=== PATIENT | female | born 1970 | race Caucasian/White ===

== ENCOUNTER 2018-11-13 17:09 | Emergency (ER) | payer OTHER, SELFPAY ==
[2018-11-13 17:10] VITALS: BP 144/91; PULSE 95; RESP 22; TEMP 36.7; O2SAT 97; BMI 37.3
--- NOTE | 2018-11-13 17:20 | CT_ITS ---
STUDY: CT ABDOMEN AND PELVIS WITH CONTRAST REASON FOR EXAM: Female, 48 years old. Right lower quadrant pain. RADIATION DOSAGE (If Supplied By Facility): CTDIvol = ( 16.64 ) mGy, DLP = ( 1190.17 ) mGycm TECHNIQUE: Transaxial images were obtained from the dome of the diaphragm to the symphysis pubis without oral contrast. 100 ml of Isovue 300 contrast was administered. Sagittal and coronal images were reconstructed. Individualized dose optimization techniques were used for this CT. COMPARISON: None. FINDINGS: Lung bases are clear. Visualized heart is normal. There is diffuse fatty infiltration of the liver. There is no focal hepatic lesion. The gallbladder is contracted. The spleen and pancreas are unremarkable. The adrenal glands are normal. The kidneys are unremarkable. No stones or hydronephrosis. The aorta is normal in caliber. There is no free fluid, free air, or organized collection. No bowel obstruction or inflammatory change. Normal appendix. Urinary bladder is unremarkable. Uterus and adnexae are unremarkable. There is prominent soft tissue density in the vagina or lower uterine segment with question of mass. Normal abdominal wall. Normal osseous structures. CT/Abdomen/Pelvis W IV Cont ONLY IMPRESSION: 1. No acute process or evidence of appendicitis. 2. Enlarged vagina with question of mass. Correlation with pelvic exam is advised. 3. Hepatic steatosis. Electronically Signed: Alba Hawthorne MD at 19:24 EST Tel , Service support ,
--- NOTE | 2018-11-13 17:25 | ED.DCSUM_ITS ---
- ER Visit Summary Date of Service: 11/13/18 Chief Complaint: Right lower quadrant pain History of Present Illness: The patient is a 48 F presents to the emergency department with right lower quadrant pain. The patient's been having symptoms intermittently for the past 2 weeks. Over the past few days, they have worsened. She describes an intermittent, sharp, stabbing pain in her right lower quadrant. She states when it comes on, she does get mildly nauseated and lightheaded. She has had some night sweats. She actually went to her OB. She had an ultrasound which showed a fibroid, but her ovaries were normal. She has had prior , but no other abdominal surgery. She denies any dysuria. She denies any flank pain. She denies any change in bowel habits. Physical Examination: Vital signs reviewed General: Well-nourished, well-developed Head: Normocephalic, atraumatic Eyes: Pupils equal and reactive, extraocular muscles intact Neck, supple, no lymphadenopathy Heart: Regular rate and rhythm Respiratory: No distress, clear bilaterally Abdomen: Soft, tender in the right lower quadrant without rebound or guarding, nondistended, no peritoneal signs Back: Nontender Extremities: Nontender, no edema, no cords Skin: Normal color no rash Neuro: Alert and oriented, no focal or lateralizing deficits Test Results: [] Emergency Department Course and Treatment: The patient presents with intermittent right lower quadrant pain. It is sharp and stabbing and comes in waves. She just came from her [employer] and had transvaginal ultrasound which demonstrated a fibroid at the anterior inferior part of the uterus. Ovaries were normal. The patient had IV established. She declined analgesics. Labs were obtained and were unremarkable. The patient underwent CT the abdomen pelvis. This does demonstrate the uterine abnormality, but there was no other intra-abdominal abnormality. At this time, I am unsure of the acute etiology of the patient's pain. She is been having intermittent, sharp stabbing pain that comes in waves and radiates into the pelvis. She is also been dealing with sciatica. I am not sure if this is referred pain from nerve impingement versus something else. At this time, the patient is comfortable. I do feel that she is safe for outpatient therapy. She was counseled on concerning symptoms and reasons to return. She will be discharged home. Treatment Plan: [] Disposition: Discharge Impression: Right lower quadrant abdominal pain This note was generated with [id number] dictation software. It may contain incorrect words, spelling, and punctuation that were not noted in review of the chart prior to signing ED Disposition - Plan for ED Patient: Chief Complaint: Abd Pain Instructions: ED Abdominal Pain Unkn Cause Prescriptions: Oxycodone HCl/Acetaminophen [Percocet 5/325] 1 tab PO Q6H PRN PRN 2 Days #8 tab PRN Reason: Pain Referrals: Hussain Hunt MD [Primary Care Provider] -
[2018-11-13] MEDS: 0.9% Normal Saline 1,000 ML 1000 ML IV (17:29)
[2018-11-13] MEDS: Ondansetron 4 MG/2 ML Vial IV (17:41)
[2018-11-13] MEDS: Ketorolac 30 MG/ML Syringe IV (17:41)
[2018-11-13 17:42] LABS: Absolute Lymphocyte Count 2.74 X10^3/ul (0.83-4.51); Absolute Neutrophil Count 3.8 X10^3/uL (2.0-7.7); Basophil# 0.03 X10^3/uL; Basophil% 0.4 % (0-1); Eosinophil# 0.19 X10^3/uL; Eosinophils% 2.6 % (0-5); Hematocrit 40.9 % (37-47); Hemoglobin 14.1 g/dl (12.0-15.0); Lymphocyte # 2.74 X10^3/ul (4.0); Lymphocyte % 38.2 % (19-41); Mean Corp Hgb Conc 34.5 g/gl (32-36); Mean Corpuscular Hgb 31.5 pg (27.0-32.0); Mean Corpuscular Volume 91.5 fL (81-99); Mean Platelet Vol. 9.8 fl (6.2-12.0); Monocyte# 0.41 X10^3/uL; Monocyte% 5.7 % (0-10); POSITIVE COUNT NO; POSITIVE DIFFERENTIAL NO; POSITIVE MORPHOLOGY NO; Platelet Count 263 K/mm3 (150-450); RBC Distribution Width CV 12.1 % (11.6-14.6); RBC Distribution Width SD 40.5 fl (35.1-43.9); Red Blood Count 4.47 M/mm3 (4.2-5.4); White Blood Count 7.2 K/mm3 (4.4-11.0)
[2018-11-13 17:55] LABS: ALB/GLOB Ratio 1.1 RATIO (0.9-2.4); AST(SGOT) 29 U/L (15-37); Alanine Aminotransfer ALT/SGPT 44 U/L (13-56); Albumin, Serum 3.6 g/dL (3.2-5.0); Alkaline Phosphatase 64 U/L (45-117); Anion Gap 8 (5-15); BUN 13 mg/dL (7-18); BUN/Creat Ratio 15.6 RATIO (10-20); Calcium,Total 8.5 mg/dL (8.5-10.1); Chloride 108 mmol/L (98-107); Creatinine, Serum 0.84 mg/dL (0.55-1.02); EST Glomerular Filtration Rate 77 mL/min (>60); Est Glom Filt Rate - Afr Amer 93 mL/min (>60); Estimated Creatinine Clearance 64.78 ml/min; Globulin 3.3 g/dL (2.2-4.2); Glucose 104 mg/dL (74-106); Potassium 3.7 mmol/L (3.5-5.1); Protein, Total 6.9 g/dL (6.4-8.2); Sodium Level 141 mmol/L (136-145)
[2018-11-13 18:30] LABS: Mucous, Urine 0 SEEN /hpf (<or=2+); Red Blood Cells-Urine 0 SEEN /hpf (0-5); White Blood Cells 0 SEEN /hpf (0-5)
[2018-11-13 18:39] LABS: Color, Urine Yellow (Yellow); Glucose, Dipstick Normal (Normal); Ketone-Dipstick 5 mg/dl (Negative); Leukocyte Esterase-Dipstick Negative /ul (Negative); Nitrite-Dipstick Negative (Negative); Occult Blood-Urine Negative /ul (Negative); Protein-Dipstick Negative (Negative); Specific Gravity, Urine 1.015 (1.002-1.030); Urine Bilirubin Dipstick Negative (Negative); Urine Clarity Sl. Cloudy (Clear); Urine Urobilinogen 1 mg/dl (Normal)
[2018-11-13 18:46] LABS: Bacteria RARE /hpf (None Seen); Squamous Epithelial Cells - UA 0-5 SEEN /hpf (5-10)
[2018-11-13 19:20] VITALS: BP 137/69; PULSE 79; RESP 18; O2SAT 97
[2018-11-13] MEDS: oxyCODONE 5 MG Tablet PO (19:52)
--- OUTSIDE RECORDS SUMMARY | 2019-01-18 08:21 | XMS RPT_ITS ---
:1970 Author Organization OHIP Care Team Providers Name Role Phone HUSSAIN ACKERMAN Attending Unavailable HUSSAIN ACKERMAN Referring Unavailable WANDA MORALES (PA) Attending Unavailable HUSSAIN ACKERMAN Referring Unavailable MAHI RAMIREZ Attending Unavailable WANDA MORALES (PA) Referring Unavailable STEPHANIE TERRAZAS () Attending Unavailable LISA FONSECA (PT) Attending Unavailable STEPHANIE TERRAZAS () Referring Unavailable LISA FONSECA (PT) Attending Unavailable STEPHANIE TERRAZAS () Referring Unavailable LEISA MONTEIRO (CNM) Attending Unavailable NENA GUERRERO (MICHEAL) Attending Unavailable NENA GUERRERO (MICHAEL) Referring Unavailable HUSSAIN ACKERMAN Attending Unavailable Uri Henry Attending Unavailable Hussain Ackerman Primary Care Unavailable PROBLEMS PROBLEMS DATE TYPE CONDITION / CODE ATTENDING STATUS SOURCE 11/13/2018 Unknown K45.8 - Other Uri Henry Active [facility] abdominal hernia Hospital without Repository obstruction or gangrene / K45.8(ICD-10) 11/13/2018 Active Right lower Active [facility] quadrant pain / [place] R10.31(ICD-10) Repository 11/13/2018 Active Unknown / NENA GUERRERO Active [facility] 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) [place] Repository 07/30/2018 Active Encounter for Active [facility] general adult [place] medical Repository examination without abnormal findings / Z00.00(ICD-10) 07/30/2018 Active Hyperlipidemia, NA Active [facility] unspecified / [place] E78.5(ICD-10) Repository 07/30/2018 Active Personal history NA Active [facility] of gestational [place] diabetes / Repository Z86.32(ICD-10) 07/31/2018 Active Other general NA Active [facility] symptoms and [place] signs / Repository R68.89(ICD-10) 07/31/2018 Active Abnormal weight NA Active [facility] gain / [place] R63.5(ICD-10) Repository 07/31/2018 Active Encounter for NA Active [facility] screening for [place] diabetes mellitus Repository / Z13.1(ICD-10) 07/31/2018 Active [place] / NA Active [facility] R23.2(ICD-10) [place] Repository 07/31/2018 Active Localized NA Active [facility] adiposity / [place] E65(ICD-10) Repository PROCEDURES PROCEDURES No Procedure Records FoundRESULTS RESULTS CNPN Observed: 11/19/2018 Status: COMPLETED Source: [place] 12:00 AM [facility] REPOSITORY Telephone (WOOB) KORIN SUAREZ ([id number]) 1970 F Date Time Provider Department 11/19/18 MAHI RAMIREZ During your visit today, we recorded the following information about you: Mahi Ramirez MD 11/19/2018 9:59 AM Signed Patient was seen in ED for RLQ pain recently, and by her PCP yesterday for this ongoing pain. CT from ED on 11/13/18 showed a soft tissue density in the vagina or lower uterine segment with enlarged vagina? Can you please schedule her for a follow up appointment sooner than her scheduled appointment on 12/08/18? She also signed records release on 09/04/18 for her annual exam note, pap smear, mammogram, and EMB results from Dr. Hesham Kowalski in [place]: [facility], [address] [place] [address] . Have not received the records and will also need those prior to appointment if possible. Thank you Alia Apodaca RN 11/19/2018 2:33 PM Signed Re-faxed patient's consent for records release to Dr. Kowalski's office. Attempted to reach patient by phone to move up her follow- up appt with SW. No answer and no option to leave a message. Patient is scheduled for pelvic u/s on 11/24/18 at 0930. Would patient like to see Dr. Ramirez on 11/24 after her ultrasound? Will need to try calling patient back again. Alia Vera RN 11/19/2018 2:44 PM Signed Patient notified. She is questioning if she needs to f/u with you for sure. She has a 1 week f/u with Dr. Ackerman on 11/25/18 already. She doesn't want to have to pay co-pay unless it's absolutely needed. She wants sameday as Marilee appointment if she needs to d/t having to take time off of work, but SW not in that afternoon. Please advise. Nevin Ramirez MD 11/19/2018 3:34 PM Signed Given the CT findings from [facility] and her ongoing pain, would like for patient to follow up in our office. As I have not previously evaluated patient for this pelvic pain, I think that is reasonable for her to see another provider if she desires. Alia Apodaca RN 11/19/2018 4:48 PM Signed Patient notified. She would like to keep her appointment with JOSE on 12/08/18 unless her pain increases. She will see Dr. Ackerman on 11/25/18. Patient to call if she would like a sooner appointment as recommended by JOSE. Alia Ramirez MD 11/20/2018 9:01 AM Addendum Received records from [facility] in [place] - mammogram from 2015 negative. Will need records from Dr. Hesham Kowalski at [facility] [place] for pap smear, recent mammogram, and EMB. Can have pt sign new records release at next appointment. Thank you Nevin Vrea RN 11/20/2018 9:38 AM Signed Added to appointment notes that records release needs to be signed at 12/08/18 appointment with JOSE. Allergies As of Date: 11/19/2018 Noted Allergy Reaction VICODIN (HYDROCODONE-ACETAMINOPHE*03/02/2011 8 - GI Upset Date Reviewed: 11/18/2018 Reviewed by: Hussain Ackerman - Fully Assessed Reason for Visit: Follow Up [171] Prescriptions as of 11/19/2018 Sig: METRONIDAZOLE 500 MG TABLET Take 1 tablet by mouth twice * FLUCONAZOLE 150 MG TABLET 1 tab by mouth every other da* CYCLOBENZAPRINE 10 MG TABLET Take 1 tablet by mouth three * NAPROXEN 500 MG TABLET Take 1 tablet by mouth twice * METOPROLOL SUCCINATE ER 25 MG* Take 1 tablet by mouth once d* OMEPRAZOLE 20 MG CAPSULE,SAKSHI* Take 1 capsule by mouth twice* OMEGA-3 FATTY ACIDS 1,000 MG * Take 1 capsule by mouth once * LISINOPRIL 10 MG TABLET Take 1 tablet by mouth once d* DICYCLOMINE 10 MG CAPSULE Take 1 capsule by mouth twice* MULTIVITAMIN ORAL Take by mouth twice daily. 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 AVM (arteriovenous malformation) of colon [K55.*INVALID FOR* More... History of gestational diabetes [Z86.32] INVALID FOR* Mixed hyperlipidemia [E78.2] INVALID FOR* Migraine without aura and without status migrai*INVALID FOR* More... Well adult exam [Z00.00] INVALID FOR* More... Obesity, Class II, BMI 35-39.9 [E66.9] INVALID FOR* Muscle spasm [M62.838] INVALID FOR* More... Essential hypertension [I10] INVALID FOR* Sebaceous cyst [L72.3] INVALID FOR* More... Lipoma of neck [D17.0] INVALID FOR* More... Irritable bowel syndrome with both constipation*INVALID FOR* Acute back pain with sciatica, left [M54.42] INVALID FOR* Encounter Status:Closed by ALIA APODACA RN on 11/19/18 PROGRESS Observed: 11/18/2018 Status: COMPLETED Source: [place] 4:32 PM [facility] REPOSITORY HNO ID: [id number] Author: Hussain Ackerman Service: (none) Author Type: Physician Type: Progress Notes Filed: 11/18/2018 9:08 PM Note Text: Chief Complaint Patient presents with: ED Follow-up: right lower abdominal pain x 2 months HPI Korin Suarez is a 48 year old female who presents here today for Above Complaints.. Patient has been having pain in the right lower abdomen for the past two weeks. She was initially seen by Dr. Terrazas on 10/12/2018 and was having constant burning/sharp pain in her left lower back/buttock with radiation to her left anterior hip and lateral leg to mid thigh. Exacerbated with lying down, sitting, lifting, bending. Admits to trouble sleeping at night due to pain. Treating with motrin 800 mg daily, foam roller which helps minimally. Has been doing PHYSICAL THERAPY and this has improved the left sided pain. About 2 weeks ago developed bilateral hip pains but also started to get a pain in the right lower abdomen. Pain is defiantly worse with movement. Initially with Dr. Terrazas was placed on naproxen and muscle relaxer with no significant improvement or resolution. Ibuprofen 800 mg has not been any better and has to watch how much she takes or will tear up her stomach. Was seen by Leisa Monteiro at the [facility] 11/10/2018 center and pelvic exam was unremarkable. She was set up to get a pelvic US vaginally. This was very painful for her and having to distend her bladder with water for the US was also very painful. Urine cult was neg and vaginal testing for BV and fungus was neg. Patient followed up in the [facility] 11/13/2018 because pain was increased. No repeat pelvic exam was completed. But abdominal exam produced right sided lower abdominal pain. Patient was told the US showed a anterior fundal fibroid and that this would not be the source of the pain. Patient then went to the ER on 11/13/2018 because of the US finding to r/o appendicitis. CT was neg for appendicitis but described a prominent soft tissue density in the vagina or lower uterine segment with enlarged vagina. This was not up in the fundus like stated in the US. Patient was discharged home with 4 OxyContin and a script for percocet (which she has not picked up yet). She has taken 3 doses of the OxyContin in the evening and goes to bed because it makes her very tired. The pain will lesson but not resolve and in approximately 4 hrs the pain returns to its typical level. She has had no loose stools or blood. No vaginal discharge. NO fevers or chills. No dysuria, gross hematuria, frequency or urgency. She did have her period recently and this did not seem to increase the pain. Past medical history, appointments, medications, allergies reviewed. Previous Medical History PAST MEDICAL HISTORY Diagnosis Date - AVM (arteriovenous malformation) of colon 07/30/2018 Colonoscopy 2016 - Essential hypertension 07/30/2018 - Gastroesophageal reflux disease with esophagitis 04/11/2017 - Hiatal hernia 07/30/2018 - History of colonic polyps 07/30/2018 Colonoscopy 03/2017, repeat 5 yrs - History of gestational diabetes 07/30/2018 - Irritable bowel syndrome with both constipation and diarrhea 07/30/2018 - Lipoma of neck 07/30/2018 left posterior neck - Migraine without aura and without status migrainosus, not intractable 07/30/2018 - Mixed hyperlipidemia 07/30/2018 - Muscle spasm 07/30/2018 under left scapula with stress, takes flexerile as needed but infrequent - Obesity, Class II, BMI 35-39.9 07/30/2018 - Sebaceous cyst 07/30/2018 lateral to left eye - 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 Previous Surgical History PAST SURGICAL HISTORY Procedure Laterality Date - SECTION HX x2 - COLONOSCOPY 2010 Five Polyps benign - COLONOSCOPY 03/2017 - DILATION AND CURETTAGE - ORTHOPEDICS SURGERY HX Two knee surgeries on right knee - meniscus surgery - TUBAL LIGATION HX 09/28/2003 Family History FAMILY HISTORY Problem Relation Age of Onset - Allergies Mother - Hypertension Father - Coronary Artery Disease Father 5 vessel CABG in 50's - other (heavy menstrual periods) Sister Had an ablation - Alzheimer's Disease No Family History - Breast Cancer No Family History - Ovarian cancer No Family History - Uterine Cancer No Family History - Colon Cancer No Family History - Prostate Cancer No Family History - Diabetes No Family History - Kidney Disease No Family History - Seizures No Family History - Stroke No Family History - Thyroid No Family History Patient Allergies ALLERGIES Allergen Reactions - Vicodin [Hydrocodon* GI Upset Current Medications Current Outpatient Prescriptions on File Prior to Visit: cyclobenzaprine (FLEXERIL) 10 mg tablet Take 1 tablet by mouth three times daily as needed for Muscle Spasm or Pain. naproxen (NAPROSYN) 500 mg tablet Take 1 tablet by mouth twice daily as needed. Take with food. metoprolol succinate ER (TOPROL XL) 25 mg 24 hr tablet Take 1 tablet by mouth once daily. omega-3 fatty acids 1,000 mg cap Take 1 capsule by mouth once daily. lisinopril (ZESTRIL, PRINIVIL) 10 mg tablet Take 1 tablet by mouth once daily. dicyclomine (BENTYL) 10 mg capsule Take 1 capsule by mouth twice daily as needed. MULTIVITAMIN ORAL Take by mouth twice daily. omeprazole (PRILOSEC) 20 mg capsule Take 1 capsule by mouth twice daily before meals. No current facility-administered medications on file prior to visit. 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 General Appearance: Well appearing, alert, in no acute distress, well-hydrated, well nourished.. Back:no pain to palpation of vertebrae except for down near the sacrum and mild., good flexion and extension, good range of motion, no muscle tenderness, reflexes are 2+ and symmetric, motor and sensory are normal, negative SLR test Lungs: lungs clear to auscultation. No wheezing, rhonchi, rales. Heart: RRR without murmur, gallop, or rubs. No ectopy. Abdomen: Normal abdominal exam, Abdomen soft, Bowel sounds normal. No masses, organomegaly. Has reproducible pain with palpation in the RLQ. No guarding or rebound pain Extremities: No deformities, edema Musculoskeletal: Spine range of motion normal. Muscular strength intact, No joint swelling, deformity, or tenderness over the greater trochanter regions Peripheral Pulses: Normal. Neurologic: Gait normal. Reflexes normal and symmetric at the knees. Sensation to light touch symmetric and intact in the lower extremities. Pelvic No external abnormalities. Vaginal driscoll normal. There is a thick cheesy discharge white in color. On palpation the is mild tenderness in the RLQ an over the adnexa. No mass appreciated. No pain with palpation of the LLQ or Adnexa and no CMT. . Health Maintenance List BP CONTROLLED (<130/80) due on 1988 MAMMOGRAM due on 2010 PAP EVERY 3 YEARS due on 08/21/2019 ANNUAL PCP TEAM CHRONIC DISEASE VISIT due on 10/12/2019 DIABETES SCREEN due on 07/31/2021 LIPID SCREEN due on 07/31/2023 DTAP,TDAP,TD(2 - Td) due on 03/04/2027 HIV SCREEN Completed Data reviewed Vaginal sample looked at under microscope: JUAN JOSE there was the presence of fungus and Wet Prep there was the presence of clue cells. No trich. Wiff test with JUAN JOSE was also positive. . A/P ASSESSMENT/PLAN: 1. RLQ abdominal pain - ICD9: 789.03, ICD10: R10.31 (primary diagnosis) - This is not due to sciatica. Will not present this way with pain in the RLQ/pelvic region. Plus her sciatica was on the left. - offered Toradol but patient declined since it was not helpful in the ER. 2. Uterine leiomyoma, unspecified location - ICD9: 218.9, ICD10: D25.9 - This could be the source of her pain and if symptoms not resolved with treatment of the BV and yeast infection will discuss with her PHONE OPERATOR to consider Tx of the Fibroid. 3. Bacterial vaginitis - ICD9: 616.10, 041.9, ICD10: N76.0, B96.89 - will treat with flagyl 500 mg twice a day for 7 days 4. Lisa vaginitis - ICD9: 112.1, ICD10: B37.3 - Will treat with diflucan 150 mg every other evening for three doses. 5. Left sided sciatica - ICD9: 724.3, ICD10: M54.32 Sciatica - Cont PHYSICAL THERAPY. Signed Prescriptions Disp Refills metroNIDAZOLE (FLAGYL) 500 mg tablet 14 tablet 0 Sig: Take 1 tablet by mouth twice daily for 7 days. fluconazole (DIFLUCAN) 150 mg tablet 3 tablet 1 Si tab by mouth every other day for 3 doses F/u in a week Time with patient face to face was 30 min . Hussain Ackemran MD CNOV Observed: 11/18/2018 Status: COMPLETED Source: [place] 4:00 PM [facility] REPOSITORY Office Visit (FAMPWS) KORIN SUAREZ ([id number]) 1970 F Date Time Provider Department 11/18/18 4:00 PM [facility] During your visit today, we recorded the following information about you: Pulse Respiration Blood pressure Weight 80/minute 14/minute 118/82 91.6 kg Hussain Ackerman MD 11/18/2018 9:08 PM Signed Chief Complaint Patient presents with: ED Follow-up: right lower abdominal pain x 2 months HPI Korinroxanne Suarez is a 48 year old female who presents here today for Above Complaints.. Patient has been having pain in the right lower abdomen for the past two weeks. She was initially seen by Dr. Terrazas on 10/12/2018 and was having constant burning/sharp pain in her left lower back/buttock with radiation to her left anterior hip and lateral leg to mid thigh. Exacerbated with lying down, sitting, lifting, bending. Admits to trouble sleeping at night due to pain. Treating with motrin 800 mg daily, foam roller which helps minimally. Has been doing PHYSICAL THERAPY and this has improved the left sided pain. About 2 weeks ago developed bilateral hip pains but also started to get a pain in the right lower abdomen. Pain is defiantly worse with movement. Initially with Dr. Terrazas was placed on naproxen and muscle relaxer with no significant improvement or resolution. Ibuprofen 800 mg has not been any better and has to watch how much she takes or will tear up her stomach. Was seen by Leisa Monteiro at the [facility] 11/10/2018 center and pelvic exam was unremarkable. She was set up to get a pelvic US vaginally. This was very painful for her and having to distend her bladder with water for the US was also very painful. Urine cult was neg and vaginal testing for BV and fungus was neg. [facility] because pain was increased. No repeat pelvic exam was completed. But abdominal exam produced right sided lower abdominal pain. Patient was told the US showed a anterior fundal fibroid and that this would not be the source of the pain. Patient then went to the ER on 11/13/2018 because of the US finding to r/o appendicitis. CT was neg for appendicitis but described a prominent soft tissue density in the vagina or lower uterine segment with enlarged vagina. This was not up in the fundus like stated in the US. Patient was discharged home with 4 OxyContin and a script for percocet (which she has not picked up yet). She has taken 3 doses of the OxyContin in the evening and goes to bed because it makes her very tired. The pain will lesson but not resolve and in approximately 4 hrs the pain returns to its typical level. She has had no loose stools or blood. No vaginal discharge. NO fevers or chills. No dysuria, gross hematuria, frequency or urgency. She did have her period recently and this did not seem to increase the pain. Past medical history, appointments, medications, allergies reviewed. Previous Medical History PAST MEDICAL HISTORY Diagnosis Date - AVM (arteriovenous malformation) of colon 07/30/2018 Colonoscopy 2016 - Essential hypertension 07/30/2018 - Gastroesophageal reflux disease with esophagitis 04/11/2017 - Hiatal hernia 07/30/2018 - History of colonic polyps 07/30/2018 Colonoscopy 03/2017, repeat 5 yrs - History of gestational diabetes 07/30/2018 - Irritable bowel syndrome with both constipation and diarrhea 07/30/2018 - Lipoma of neck 07/30/2018 left posterior neck - Migraine without aura and without status migrainosus, not intractable 07/30/2018 - Mixed hyperlipidemia 07/30/2018 - Muscle spasm 07/30/2018 under left scapula with stress, takes flexerile as needed but infrequent - Obesity, Class II, BMI 35-39.9 07/30/2018 - Sebaceous cyst 07/30/2018 lateral to left eye - 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 Previous Surgical History PAST SURGICAL HISTORY Procedure Laterality Date - SECTION HX x2 - COLONOSCOPY 2010 Five Polyps benign - COLONOSCOPY 03/2017 - DILATION AND CURETTAGE - ORTHOPEDICS SURGERY HX Two knee surgeries on right knee - meniscus surgery - TUBAL LIGATION HX 09/28/2003 Family History FAMILY HISTORY Problem Relation Age of Onset - Allergies Mother - Hypertension Father - Coronary Artery Disease Father 5 vessel CABG in 50's - other (heavy menstrual periods) Sister Had an ablation - Alzheimer's Disease No Family History - Breast Cancer No Family History - Ovarian cancer No Family History - Uterine Cancer No Family History - Colon Cancer No Family History - Prostate Cancer No Family History - Diabetes No Family History - Kidney Disease No Family History - Seizures No Family History - Stroke No Family History - Thyroid No Family History Patient Allergies ALLERGIES Allergen Reactions - Vicodin [Hydrocodon* GI Upset Current Medications Current Outpatient Prescriptions on File Prior to Visit: cyclobenzaprine (FLEXERIL) 10 mg tablet Take 1 tablet by mouth three times daily as needed for Muscle Spasm or Pain. naproxen (NAPROSYN) 500 mg tablet Take 1 tablet by mouth twice daily as needed. Take with food. metoprolol succinate ER (TOPROL XL) 25 mg 24 hr tablet Take 1 tablet by mouth once daily. omega-3 fatty acids 1,000 mg cap Take 1 capsule by mouth once daily. lisinopril (ZESTRIL, PRINIVIL) 10 mg tablet Take 1 tablet by mouth once daily. dicyclomine (BENTYL) 10 mg capsule Take 1 capsule by mouth twice daily as needed. MULTIVITAMIN ORAL Take by mouth twice daily. omeprazole (PRILOSEC) 20 mg capsule Take 1 capsule by mouth twice daily before meals. No current facility-administered medications on file prior to visit. 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 General Appearance: Well appearing, alert, in no acute distress, well-hydrated, well nourished.. Back:no pain to palpation of vertebrae except for down near the sacrum and mild., good flexion and extension, good range of motion, no muscle tenderness, reflexes are 2+ and symmetric, motor and sensory are normal, negative SLR test Lungs: lungs clear to auscultation. No wheezing, rhonchi, rales. Heart: RRR without murmur, gallop, or rubs. No ectopy. Abdomen: Normal abdominal exam, Abdomen soft, Bowel sounds normal. No masses, organomegaly. Has reproducible pain with palpation in the RLQ. No guarding or rebound pain Extremities: No deformities, edema Musculoskeletal: Spine range of motion normal. Muscular strength intact, No joint swelling, deformity, or tenderness over the greater trochanter regions Peripheral Pulses: Normal. Neurologic: Gait normal. Reflexes normal and symmetric at the knees. Sensation to light touch symmetric and intact in the lower extremities. Pelvic No external abnormalities. Vaginal driscoll normal. There is a thick cheesy discharge white in color. On palpation the is mild tenderness in the RLQ an over the adnexa. No mass appreciated. No pain with palpation of the LLQ or Adnexa and no CMT. . Health Maintenance List BP CONTROLLED (<130/80) due on 1988 MAMMOGRAM due on 2010 PAP EVERY 3 YEARS due on 08/21/2019 ANNUAL PCP TEAM CHRONIC DISEASE VISIT due on 10/12/2019 DIABETES SCREEN due on 07/31/2021 LIPID SCREEN due on 07/31/2023 DTAP,TDAP,TD(2 - Td) due on 03/04/2027 HIV SCREEN Completed Data reviewed Vaginal sample looked at under microscope: JUAN JOSE there was the presence of fungus and Wet Prep there was the presence of clue cells. No trich. Wiff test with JUAN JOSE was also positive. . A/P ASSESSMENT/PLAN: 1. RLQ abdominal pain - ICD9: 789.03, ICD10: R10.31 (primary diagnosis) - This is not due to sciatica. Will not present this way with pain in the RLQ/pelvic region. Plus her sciatica was on the left. - offered Toradol but patient declined since it was not helpful in the ER. 2. Uterine leiomyoma, unspecified location - ICD9: 218.9, ICD10: D25.9 - This could be the source of her pain and if symptoms not resolved with treatment of the BV and yeast infection will discuss with her PHONE OPERATOR to consider Tx of the Fibroid. 3. Bacterial vaginitis - ICD9: 616.10, 041.9, ICD10: N76.0, B96.89 - will treat with flagyl 500 mg twice a day for 7 days 4. Lisa vaginitis - ICD9: 112.1, ICD10: B37.3 - Will treat with diflucan 150 mg every other evening for three doses. 5. Left sided sciatica - ICD9: 724.3, ICD10: M54.32 Sciatica - Cont PHYSICAL THERAPY. Signed Prescriptions Disp Refills metroNIDAZOLE (FLAGYL) 500 mg tablet 14 tablet 0 Sig: Take 1 tablet by mouth twice daily for 7 days. fluconazole (DIFLUCAN) 150 mg tablet 3 tablet 1 Si tab by mouth every other day for 3 doses F/u in a week Time with patient face to face was 30 min . Hussain Ackerman MD Referring Provider: SELF [[id number]] Allergies As of Date: 11/18/2018 Noted Allergy Reaction VICODIN (HYDROCODONE-ACETAMINOPHE*03/02/2011 8 - GI Upset Date Reviewed: 11/18/2018 Reviewed by: Hussain Ackerman - Fully Assessed Reason for Visit: ED Follow-up [821] Cmt: right lower abdominal pain x 2 months Primary Visit Diagnosis:RLQ abdominal pain [R10.31] Other Visit Diagnoses:Uterine leiomyoma, unspecified location [D25.9] Bacterial vaginitis [N76.0, B96.89] Lisa vaginitis [B37.3] Left sided sciatica [M54.32] Order(s):metroNIDAZOLE (FLAGYL) 500 mg tabletTake 1 tablet by mouth twice daily for 7 days.Disp: 14 tabletRfl: 0 fluconazole (DIFLUCAN) 150 mg tablet1 tab by mouth every other day for 3 dosesDisp: 3 tabletRfl: 1 Prescriptions as of 11/18/2018 Sig: CYCLOBENZAPRINE 10 MG TABLET Take 1 tablet by mouth three * NAPROXEN 500 MG TABLET Take 1 tablet by mouth twice * METOPROLOL SUCCINATE ER 25 MG* Take 1 tablet by mouth once d* OMEGA-3 FATTY ACIDS 1,000 MG * Take 1 capsule by mouth once * LISINOPRIL 10 MG TABLET Take 1 tablet by mouth once d* DICYCLOMINE 10 MG CAPSULE Take 1 capsule by mouth twice* MULTIVITAMIN ORAL Take by mouth twice daily. METRONIDAZOLE 500 MG TABLET Take 1 tablet by mouth twice * FLUCONAZOLE 150 MG TABLET 1 tab by mouth every other da* OMEPRAZOLE 20 MG CAPSULE,SAKSHI* Take 1 capsule by mouth twice* Problem List As Of Date 11/18/2018 Noted Resolved Gastroesophageal reflux disease with esophagiti*INVALID FOR* Hiatal hernia [K44.9] INVALID FOR* 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] INVALID FOR* History of colonic polyps [Z86.010] INVALID FOR* More... AVM (arteriovenous malformation) of colon [K55.*INVALID FOR* More... History of gestational diabetes [Z86.32] INVALID FOR* Mixed hyperlipidemia [E78.2] INVALID FOR* Migraine without aura and without status migrai*INVALID FOR* More... Well adult exam [Z00.00] INVALID FOR* More... Obesity, Class II, BMI 35-39.9 [E66.9] INVALID FOR* Muscle spasm [M62.838] INVALID FOR* More... Essential hypertension [I10] INVALID FOR* Sebaceous cyst [L72.3] INVALID FOR* More... Lipoma of neck [D17.0] INVALID FOR* More... Irritable bowel syndrome with both constipation*INVALID FOR* Acute back pain with sciatica, left [M54.42] INVALID FOR* Prescriptions ordered this encounter Disp Refills Start End METRONIDAZOLE 500 MG TABLET 14 t* 0 11/18/2018 11/25/2018 Route: ORAL Sig: Take 1 tablet by mouth twice daily for 7 days. FLUCONAZOLE 150 MG TABLET 3 ta* 1 11/18/2018 Si tab by mouth every other day for 3 doses Disposition: Return in about 1 week (around 11/25/2018) for f/u RLQ pain. Follow-up and Disposition History Recorded Encounter Status:Closed by HUSSAIN ACKERMAN on 11/18/18 CNCO Observed: 11/18/2018 Status: COMPLETED Source: [place] 12:00 AM [facility] REPOSITORY Letter Text [facility] [address] [place] [id number] TO WHOM IT MAY CONCERN: This is to confirm that Korin Suarez had an appointment and was seen at the [facility] in the Department of Family Medicine Hussain Ackerman MD on 11/18/2018. Sincerely yours, Hussain Ackerman MD EMERGENCY DEPARTMENT Observed: 11/13/2018 Status: F Source: [place] SUMMARY 8:22 PM [facility] REPOSITORY [facility] Medical Records Department [address] [place] [address] Emergency Department Summary 11/13/18 1724 MR#: [id number] Acct: [id number] Name: KORIN SUAREZ Rep #: [id number] : 1970 48 From: Uri Henry MD PCP: Hussain Ackerman MD Status: DEP ER - ER Visit Summary Date of Service: 11/13/18 Chief Complaint: Right lower quadrant pain History of Present Illness: The patient is a 48 F presents to the emergency department with right lower quadrant pain. The patient's been having symptoms intermittently for the past 2 weeks. Over the past few days, they have worsened. She describes an intermittent, sharp, stabbing pain in her right lower quadrant. She states when it comes on, she does get mildly nauseated and lightheaded. She has had some night sweats. She actually went to her OB. She had an ultrasound which showed a fibroid, but her ovaries were normal. She has had prior , but no other abdominal surgery. She denies any dysuria. She denies any flank pain. She denies any change in bowel habits. Physical Examination: Vital signs reviewed General: Well-nourished, well-developed Head: Normocephalic, atraumatic Eyes: Pupils equal and reactive, extraocular muscles intact Neck, supple, no lymphadenopathy Heart: Regular rate and rhythm Respiratory: No distress, clear bilaterally Abdomen: Soft, tender in the right lower quadrant without rebound or guarding, nondistended, no peritoneal signs Back: Nontender Extremities: Nontender, no edema, no cords Skin: Normal color no rash Neuro: Alert and oriented, no focal or lateralizing deficits Test Results: [] Emergency Department Course and Treatment: The patient presents with intermittent right lower quadrant pain. It is sharp and stabbing and comes in waves. She just came from her [employer] and had transvaginal ultrasound which demonstrated a fibroid at the anterior inferior part of the uterus. Ovaries were normal. The patient had IV established. She declined analgesics. Labs were obtained and were unremarkable. The patient underwent CT the abdomen pelvis. This does demonstrate the uterine abnormality, but there was no other intra-abdominal abnormality. At this time, I am unsure of the acute etiology of the patient's pain. She is been having intermittent, sharp stabbing pain that comes in waves and radiates into the pelvis. She is also been dealing with sciatica. I am not sure if this is referred pain from nerve impingement versus something else. At this time, the patient is comfortable. I do feel that she is safe for outpatient therapy. She was counseled on concerning symptoms and reasons to return. She will be discharged home. Treatment Plan: [] Disposition: Discharge Impression: Right lower quadrant abdominal pain This note was generated with [employer] dictation software. It may contain incorrect words, spelling, and punctuation that were not noted in review of the chart prior to signing ED Disposition - Plan for ED Patient: Chief Complaint: Abd Pain Instructions: ED Abdominal Pain Unkn Cause Prescriptions: Oxycodone HCl/Acetaminophen [Percocet 5/325] 1 tab PO Q6H PRN PRN 2 Days #8 tab PRN Reason: Pain Referrals: Hussain Ackerman MD [Primary Care Provider] - What to do if you have Problems For any increased pain, shortness of breath, bleeding, nausea or vomiting, chest pain, or any unexpected problems, contact your Primary Care Provider. Call [facility] ([phone]) or report to the closest Emergency Room. Call 911 if necessary. 11/13/182021 <Electronically signed by Uri Henry MD> Date Uri Henry MD Cosigner Signature (If Indicated): Date CC: Hussain Ackerman MD URINALYSIS, COMPLETE Collected: 11/13/2018 Status: F Source[facility] [place] [facility] Order Comment: How was Urine Obtained? CLEAN CATCH TYPE CODE TESTS RESULT OUT OF RANGE REFERENCE UNITS LAB L400.3000 Yellow COLOR Normal Yellow LAB L400.3050 Clear Normal CLARITY Sl. Cloudy LAB L400.3200 Normal mg/dl Normal GLUCOSE, UR Normal LAB L400.3300 Negative mg/dL Normal BILIRUBIN URINE Negative LAB L400.3400 Negative mg/dl High 5 KETONE UR LAB L400.3465 1.002-1.030 Normal SP.GR. DIPSTX 1.015 LAB L400.3550 5.0 - 8.0 pH UR Normal 7.0 LAB L400.3600 Negative mg/dl PROT Normal DIPSTX Negative LAB L400.3700 Normal mg/dl High 1 UROBILI LAB L400.3750 Negative Normal NITRITE UR Negative LAB L400.3780 Negative /ul Normal OCCULT BLOOD-UR Negative LAB L400.3800 Negative /ul LEUK Normal ESTERASE Negative LAB L400.4050 0-5 /hpf WBC 0 Normal SEEN LAB L400.4100 0-5 /hpf 0 Normal RBC-UA SEEN LAB L400.4150 5-10 /hpf SQUAM Normal EPI 0-5 SEEN LAB L400.4300 None Seen /hpf Normal BACTERIA RARE LAB L400.4350 <or=2+ /hpf 0 Normal MUCUS, URINE SEEN Performed By: #### L400.0001 #### [facility] [address] [place], [address] CBC W/DIFF, AUTOMATED Collected: 11/13/2018 Status: F Source: [place] 5:30 PM [facility] REPOSITORY TYPE CODE TESTS RESULT OUT OF RANGE REFERENCE UNITS LAB L100.1000 4.4-11.0 K/mm3 Normal WBC 7.2 LAB L100.1200 4.2-5.4 M/mm3 Normal RBC 4.47 LAB L100.1300 12.0-15.0 g/dl Normal HGB 14.1 LAB L100.1400 37-47 % Normal HCT 40.9 LAB L100.1500 81-99 fL Normal MCV 91.5 LAB L100.1600 27.0-32.0 pg Normal MCH 31.5 LAB L100.1700 32-36 g/gl Normal MCHC 34.5 LAB L100.1810 11.6-14.6 % Normal RDW CV 12.1 LAB L100.1820 35.1-43.9 fl Normal RDW SD 40.5 LAB L100.1900 150-450 K/mm3 Normal PLT 263 LAB L100.2000 6.2-12.0 fl Normal MPV 9.8 LAB L100.2100 47-70 % Normal NEUT% 53.0 LAB L100.2200 19-41 % Normal LY% 38.2 LAB L100.2300 0-10 % Normal MONO% 5.7 LAB L100.2400 0-5 % Normal EO% 2.6 LAB L100.2500 0-1 % Normal BASO% 0.4 LAB L100.2550 0.0-0.9 % Normal IM GRAN % 0.100 Result Comment: IG% - Immature Granulocytes (promyelocytes, myelocytes and metamyelocytes) > 1% indicates that a LEFT SHIFT is Present. LAB L100.2620 2.0-7.7 X10 3/uL Normal Absolute Neut 3.8 LAB L100.2720 0.83-4.51 X10 3/ul Normal Absolute Lymph 2.74 Performed By: #### L100.0100 #### [facility] [address] [place], [address] COMPREHENSIVE METABOLIC Collected: 11/13/2018 Status: F Source: [facility] 5:30 PM [facility] REPOSITORY TYPE CODE TESTS RESULT OUT OF RANGE REFERENCE UNITS LAB L501.0100 74-106 mg/dL Normal GLU 104 Result Comment: Fasting Glucose result from 100 to 125 mg/dL suggests IMPAIRED HOMEOSTASIS per A.D.A. criteria. Please note revised GLUCOSE reference range effective 2017. LAB L501.1000 7-18 mg/dL Normal BUN 13 LAB L501.1100 0.55-1.02 mg/dL Normal CREAT,SERUM 0.84 Result Comment: The validity of the calculated GFR AND GFRAA in patients over 70 years has not been determined. Clinical correlation is essential. LAB L501.1110 >60 mL/min Normal EST GFR 77 Result Comment: Non- GFR Calc LAB L501.1115 >60 mL/min Normal EST GFR - AA 93 Result Comment: GFR Calc LAB L501.1255 ml/min Normal Estimated CRCL 64.78 LAB L501.1300 10-20 RATIO Normal BUN/CRE 15.6 LAB L501.1500 6.4-8. g/dL Normal 2 T PROT 6.9 LAB L501.1800 3.2-5. g/dL Normal 0 ALB 3.6 LAB L501.1950 2.2-4. g/dL Normal 2 GLOB 3.3 LAB L501.2000 0.9-2. RATIO Normal 4 A/G 1.1 LAB L501.2200 8.5-10 mg/dL Normal .1 CA 8.5 LAB L501.4100 15-37 U/L Normal AST 29 LAB L501.4305 45-117 U/L Normal ALK P 64 LAB L501.4405 13-56 U/L Normal ALT 44 LAB L501.4600 0.20-1 mg/dL Normal .00 T BILI 0.40 LAB L501.5300 136-14 mmol/L Normal 5 NA 141 LAB L501.5600 3.5-5. mmol/L Normal 1 K 3.7 LAB L501.5900 98-107 mmol/L High CL 108 LAB L501.6100 21.0-3 mmol/L Normal 2.0 CO2 25.0 LAB L501.6200 5-15 Normal GAP 8 Performed By: #### L500.4050 #### [facility] [address] [facility] [place], [address] ABDOMEN/PELVIS W IV CONT Observed: 11/13/2018 Status: F Source: [place] ONLY 5:21 PM [facility] REPOSITORY [facility] Imaging Services [address] [place] [id number] Abdomen/Pelvis W IV Cont ONLY MR#: [id number] Acct: [id number] Name: KORIN SUAREZ Rep #: [id number] : 1970 F 48 From: Alba Hawthorne MD PCP: Hussain Ackerman MD Status: REG ER Study: Abdomen/Pelvis W IV Cont ONLY Date of Exam: 11/13/18 Exam# [id number] Ordering Dr: Uri Henry MD STUDY: CT ABDOMEN AND PELVIS WITH CONTRAST REASON FOR EXAM: Female, 48 years old. Right lower quadrant pain. RADIATION DOSAGE (If Supplied By Facility): CTDIvol = ( 16.64 ) mGy, DLP = ( 1190.17 ) mGycm TECHNIQUE: Transaxial images were obtained from the dome of the diaphragm to the symphysis pubis without oral contrast. 100 ml of Isovue 300 contrast was administered. Sagittal and coronal images were reconstructed. Individualized dose optimization techniques were used for this CT. COMPARISON: None. FINDINGS: Lung bases are clear. Visualized heart is normal. There is diffuse fatty infiltration of the liver. There is no focal hepatic lesion. The gallbladder is contracted. The spleen and pancreas are unremarkable. The adrenal glands are normal. The kidneys are unremarkable. No stones or hydronephrosis. The aorta is normal in caliber. There is no free fluid, free air, or organized collection. No bowel obstruction or inflammatory change. Normal appendix. Urinary bladder is unremarkable. Uterus and adnexae are unremarkable. There is prominent soft tissue density in the vagina or lower uterine segment with question of mass. Normal abdominal wall. Normal osseous structures. CT/Abdomen/Pelvis W IV Cont ONLY IMPRESSION: 1. No acute process or evidence of appendicitis. 2. Enlarged vagina with question of mass. Correlation with pelvic exam is advised. 3. Hepatic steatosis. Electronically Signed: Alba Hawthorne MD at 19:24 EST Tel , Service support , CC: Hussain Ackerman MD; Uri Henry MD Computer Information Science Professor: Signed PROGRESS Observed: 11/13/2018 Status: COMPLETED Source: [place] 3:15 PM [facility] REPOSITORY O ID: [id number] Author: Leisa Milan Service: (none) Author Type: Manager Lsw Type: Progress Notes Filed: 11/13/2018 3:15 PM Note Text: Radiology Service Progress Note PATIENT NAME: Korin Suarez DATE OF SERVICE: November 13, 2018 TIME: 3:15 PM PATIENT IDENTITY VERIFICATION COMPLETED USING TWO (2) METHODS: Patient confirmed name verbally and Date of . PATIENT GENDER DATA: Female. status: : No status: N/A PATIENT RELEVANT IMPLANT DATA REVIEWED: Not Applicable RADIOLOGY DEPARTMENT: Ultrasound PERIPHERAL IV DATA: Not applicable SIGNED BY: LEISA MILAN RDMS RVSoraya November 13, 2018 3:15 PM US FEMALE PELVIS Observed: 11/13/2018 Status: F Source: [place] 3:13 PM [facility] REPOSITORY * * *Final Report* * * DATE OF EXAM: Nov 13 2018 3:13PM WRU 1060 - US FEMALE PELVIS TRANSVAG / PROCEDURE REASON: Right lower quadrant pain * * * * Physician Interpretation * * * * EXAMINATION: TRANSVAGINAL AND LIMITED TRANSABDOMINAL PELVIC ULTRASOUND CLINICAL HISTORY: Right pelvic pain TECHNIQUE: Sonography of the pelvis was performed by transvaginal and transabdominal (limited) techniques. Images were obtained and stored in a permanent archive. MQ: [id number] COMPARISON: None RESULT: Limited scanning due to patient tolerance. Uterus size: 10.2 x 6.8 x 6.1 cm -Orientation: Anteverted -Myometrium: Anterior fundal fibroid measures 3.3 x 2.5 x 3.6 cm hyperechoic 2 x 3 mm density anterior uterine body consistent with a small calcification. -Endometrial echo complex: 1.1 cm -Cervix: normal Right adnexal density likely a RIGHT ovary measuring 3.0 x 1.7 x 1.4 cm Limited visualization only transabdominal imaging. Left adnexal density most likely LEFT ovary: 2.4 x 2.2 x 0.9 cm Limited visualization, only on transabdominal imaging. Pelvis free fluid: None. IMPRESSION: Technically limited study. Anterior fundal fibroid. Nonspecific small uterine calcification also noted Over is most likely identified on transabdominal scanning without evidence of abnormality. Ovaries could not be imaged on transvaginal scanning. 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 HPI: 2 week history of RLQ pain. Has constant crampy pain rating 3/10. Pain becomes sharp with any movement and rates 10/10. Today pain is worse than past couple of days. Denies fever or chills. Denies any vaginitis or urinary symptoms. Pelvic US scheduled for 11/24/18. Is not treating pain because NSAIDS causes bowel distress and constipation. Chronic constipation treated with probiotic, fluids, Bentyl. Last BM yesterday and normal. 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 PAST SURGICAL HISTORY Procedure Laterality Date - SECTION HX x2 - COLONOSCOPY 2010 Five Polyps benign - COLONOSCOPY 03/2017 - DILATION AND CURETTAGE - ORTHOPEDICS SURGERY HX Two knee surgeries on right knee - meniscus surgery - TUBAL LIGATION HX 09/28/2003 FAMILY HISTORY Problem Relation Age of Onset - Allergies Mother - Hypertension Father - Coronary Artery Disease Father 5 vessel CABG in 50's - other (heavy menstrual periods) Sister Had an ablation - Alzheimer's Disease No Family History - Breast Cancer No Family History - Ovarian cancer No Family History - Uterine Cancer No Family History - Colon Cancer No Family History - Prostate Cancer No Family History - Diabetes No Family History - Kidney Disease No Family History - Seizures No Family History - Stroke No Family History - Thyroid No Family History Social History Marital status: Spouse name: Years of education: Number of children: 2 Occupational 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 naproxen (NAPROSYN) 500 mg tablet Take 1 tablet by mouth twice daily as needed. Take with food. metoprolol succinate ER (TOPROL XL) 25 mg 24 hr tablet Take 1 tablet by mouth once daily. omega-3 fatty acids 1,000 mg cap Take 1 capsule by mouth once daily. lisinopril (ZESTRIL, PRINIVIL) 10 mg tablet Take 1 tablet by mouth once daily. dicyclomine (BENTYL) 10 mg capsule Take 1 capsule by mouth twice daily as needed. MULTIVITAMIN ORAL Take by mouth twice daily. omeprazole (PRILOSEC) 20 mg capsule Take 1 capsule by mouth twice daily before meals. No current facility-administered medications for this visit. Allergies As of Date: 11/13/2018 Allergen Noted Reaction VICODIN [HYDROCODONE-ACETAMINOPHE*03/02/2011 GI Upset Fully Assessed 11/13/2018 REVIEW OF SYSTEMS Abdomen: See HPI Bladder: No dysuria, gross hematuria, urinary frequency, urinary urgency, or incontinence. Allergies and current medication updated:Yes EXAM: BP 118/82 Wt 200 lb (90.7kg) LMP 11/03/2018 GENERAL: pleasant, female in no apparent distress CHEST: Normal inspiratory effort ABDOMEN: soft, no masses and Moderate tenderness in RLQ. No rebound tenderness NEURO: alert and oriented x3,exam grossly non-focal ASSESSMENT/PLAN: 1. Right lower quadrant pain - ICD9: 789.03, ICD10: R10.31 - Pelvic US rescheduled to today at 1430. US to call wet reading. - Declined STD testing - Has prescriptions for Flexeril and naproxen but not using either medication. Encouraged use as prescribed. Declines Toradol IM in office. - US FEMALE PELVIS TRANSVAG Will notify of results. If no source of pain identified, will send to ED for further evaluation. 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 HPI: 2 week history of RLQ pain. Has constant crampy pain rating 3/10. Pain becomes sharp with any movement and rates 10/10. Today pain is worse than past couple of days. Denies fever or chills. Denies any vaginitis or urinary symptoms. Pelvic US scheduled for 11/24/18. Is not treating pain because NSAIDS causes bowel distress and constipation. Chronic constipation treated with probiotic, fluids, Bentyl. Last BM yesterday and normal. 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 PAST SURGICAL HISTORY Procedure Laterality Date - SECTION HX x2 - COLONOSCOPY 2010 Five Polyps benign - COLONOSCOPY 03/2017 - DILATION AND CURETTAGE - ORTHOPEDICS SURGERY HX Two knee surgeries on right knee - meniscus surgery - TUBAL LIGATION HX 09/28/2003 FAMILY HISTORY Problem Relation Age of Onset - Allergies Mother - Hypertension Father - Coronary Artery Disease Father 5 vessel CABG in 50's - other (heavy menstrual periods) Sister Had an ablation - Alzheimer's Disease No Family History - Breast Cancer No Family History - Ovarian cancer No Family History - Uterine Cancer No Family History - Colon Cancer No Family History - Prostate Cancer No Family History - Diabetes No Family History - Kidney Disease No Family History - Seizures No Family History - Stroke No Family History - Thyroid No Family History Social History Marital status: Spouse name: Years of education: Number of children: 2 Occupational 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 naproxen (NAPROSYN) 500 mg tablet Take 1 tablet by mouth twice daily as needed. Take with food. metoprolol succinate ER (TOPROL XL) 25 mg 24 hr tablet Take 1 tablet by mouth once daily. omega-3 fatty acids 1,000 mg cap Take 1 capsule by mouth once daily. lisinopril (ZESTRIL, PRINIVIL) 10 mg tablet Take 1 tablet by mouth once daily. dicyclomine (BENTYL) 10 mg capsule Take 1 capsule by mouth twice daily as needed. MULTIVITAMIN ORAL Take by mouth twice daily. omeprazole (PRILOSEC) 20 mg capsule Take 1 capsule by mouth twice daily before meals. No current facility-administered medications for this visit. Allergies As of Date: 11/13/2018 Allergen Noted Reaction VICODIN [HYDROCODONE-ACETAMINOPHE*03/02/2011 GI Upset Fully Assessed 11/13/2018 REVIEW OF SYSTEMS Abdomen: See HPI Bladder: No dysuria, gross hematuria, urinary frequency, urinary urgency, or incontinence. Allergies and current medication updated:Yes EXAM: BP 118/82 Wt 200 lb (90.7kg) LMP 11/03/2018 GENERAL: pleasant, female in no apparent distress CHEST: Normal inspiratory effort ABDOMEN: soft, no masses and Moderate tenderness in RLQ. No rebound tenderness NEURO: alert and oriented x3,exam grossly non-focal ASSESSMENT/PLAN: 1. Right lower quadrant pain - ICD9: 789.03, ICD10: R10.31 - Pelvic US rescheduled to today at 1430. US to call wet reading. - Declined STD testing - Has prescriptions for Flexeril and naproxen but not using either medication. Encouraged use as prescribed. Declines Toradol IM in office. - US FEMALE PELVIS TRANSVAG Will notify of results. If no source of pain identified, will send to ED for further evaluation. Nena Guerrero APRN.CHEMIST ASSISTANT Referring Provider: SELF [[id number]] Allergies As of Date: 11/13/2018 Noted Allergy Reaction VICODIN (HYDROCODONE-ACETAMINOPHE*03/02/2011 8 - GI Upset Date Reviewed: 11/13/2018 Reviewed by: Nena (Jai Alai Player) Yolanda - Fully Assessed Reason for Visit: Abdominal Pain [1] Primary Visit Diagnosis:Right lower quadrant pain [R10.31] Order(s):US FEMALE PELVIS TRANSVAG [[id number]] Order #: [id number] FUTURE Prescriptions as of 11/13/2018 Sig: CYCLOBENZAPRINE 10 MG TABLET Take 1 tablet by mouth three * NAPROXEN 500 MG TABLET Take 1 tablet by mouth twice * METOPROLOL SUCCINATE ER 25 MG* Take 1 tablet by mouth once d* OMEGA-3 FATTY ACIDS 1,000 MG * Take 1 capsule by mouth once * LISINOPRIL 10 MG TABLET Take 1 tablet by mouth once d* DICYCLOMINE 10 MG CAPSULE Take 1 capsule by mouth twice* MULTIVITAMIN ORAL Take by mouth twice daily. 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 AVM (arteriovenous malformation) of colon [K55.*INVALID FOR* More... History of gestational diabetes [Z86.32] INVALID FOR* Mixed hyperlipidemia [E78.2] INVALID FOR* Migraine without aura and without status migrai*INVALID FOR* Well adult exam [Z00.00] INVALID FOR* More... Obesity, Class II, BMI 35-39.9 [E66.9] INVALID FOR* Muscle spasm [M62.838] INVALID FOR* More... Essential hypertension [I10] INVALID FOR* Sebaceous cyst [L72.3] INVALID FOR* More... Lipoma of neck [D17.0] INVALID FOR* More... Irritable bowel syndrome with both constipation*INVALID FOR* Acute back pain with sciatica, left [M54.42] INVALID FOR* Encounter Status:Closed by NENA GUERRERO on 11/13/18 Observed: 11/10/2018 Status: F Source: [place] BACT/CAND VAG GRM ST 4:45 PM [facility] REPOSITORY Sp. Request/Comment: - Swab Smear Result - BACTERIAL VAGINOSIS RESULT: Stain results consistent with normal vaginal santos. No Yeast observed No Polymorphonuclear Leukocytes Performed By: #### BVCNSM #### [facility] [address] [address] [place], [place] [address] Observed: 11/10/2018 Status: F Source: [place] URINE CULTURE 4:30 PM [facility] REPOSITORY Sp. Request/Comment: - Specimen received in preservative Culture Result - >=100,000 CFU/ml Normal urogenital santos Performed By: #### URCUL #### [facility] [address] [address] [place], [place] [address] PROGRESS Observed: 11/10/2018 Status: COMPLETED Source: [place] 4:11 PM [facility] REPOSITORY HNO ID: [id number] Author: Leisa Monteiro Service: (none) Author Type: Batch Freezer Operator Type: Progress Notes Filed: 11/15/2018 3:16 PM Note Text: Korin Suarez is a 48 year old female who presents for problem visit RLQ pelvic pain. HPI: Here today for RLQ pelvic pain over past 2 weeks. Pain is intermittent and comes and goes. Rates 8/10 at times. Yesterday it reached a 8/10 in pain then decreased. It felt like she got some relief after it reached that level of pain. Today is lessened and 3/10. Has history of IBS but uncertain if this is the cause. Denies any increased constipation or diarrhea, no N/V or signs of illness. Menses irregular but having monthly. Moderate-heavy bleeding from 3-10 days, may change tampon or pad every 2 hrs when it is heavy. LMP 11/03/18. Denies any increased vaginal discharge, itching, burning,or odor. Current partner x 5 years, declines STD testing. 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 PAST SURGICAL HISTORY Procedure Laterality Date - SECTION HX x2 - COLONOSCOPY 2010 Five Polyps benign - COLONOSCOPY 03/2017 - DILATION AND CURETTAGE - ORTHOPEDICS SURGERY HX Two knee surgeries on right knee - meniscus surgery - TUBAL LIGATION HX 09/28/2003 FAMILY HISTORY Problem Relation Age of Onset - Allergies Mother - Hypertension Father - Coronary Artery Disease Father 5 vessel CABG in 50's - other (heavy menstrual periods) Sister Had an ablation - Alzheimer's Disease No Family History - Breast Cancer No Family History - Ovarian cancer No Family History - Uterine Cancer No Family History - Colon Cancer No Family History - Prostate Cancer No Family History - Diabetes No Family History - Kidney Disease No Family History - Seizures No Family History - Stroke No Family History - Thyroid No Family History Social History Marital status: Spouse name: Years of education: Number of children: 2 Occupational 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 naproxen (NAPROSYN) 500 mg tablet Take 1 tablet by mouth twice daily as needed. Take with food. omeprazole (PRILOSEC) 20 mg capsule Take 1 capsule by mouth twice daily before meals. omega-3 fatty acids 1,000 mg cap Take 1 capsule by mouth once daily. lisinopril (ZESTRIL, PRINIVIL) 10 mg tablet Take 1 tablet by mouth once daily. dicyclomine (BENTYL) 10 mg capsule Take 1 capsule by mouth twice daily as needed. MULTIVITAMIN ORAL Take by mouth twice daily. metoprolol succinate ER (TOPROL XL) 25 mg 24 hr tablet Take 1 tablet by mouth once daily. (Patient not taking: Reported on 10/12/2018 ) No current facility-administered medications for this visit. Allergies As of Date: 11/10/2018 Allergen Noted Reaction VICODIN [HYDROCODONE-ACETAMINOPHE*03/02/2011 GI Upset Fully Assessed 11/10/2018 REVIEW OF SYSTEMS Abdomen: No bloating, early satiety, indigestion, or increased flatulence. No nausea, vomiting, diarrhea, or constipation. Bladder: No dysuria, gross hematuria, urinary frequency, urinary urgency, or incontinence. Breast: No breast lumps, nipple d/c, overlying skin changes, redness or skin retraction. Expanded ROS: N/A Allergies and current medication updated:Yes EXAM: BP 130/82 Wt 200 lb (90.7kg) LMP 11/03/2018 GENERAL: pleasant, female in no apparent distress HEENT: Normocephalic and atraumatic NECK: Supple and full range of motion DERMATOLOGY: Normal and without lesions CHEST: Clear to auscultation Normal inspiratory effort Regular rate and rhythm No murmurs, clicks, rubs or gallops ABDOMEN: soft, non-tender and no masses. No rebound guarding or tenderness. PELVIC: external genitalia normal, normal Bartholin's glands, urethra, [place]'s glands, no vulvar lesions, no cervical lesions, good vaginal support, physiologic discharge present, normal appearing perineal body and perianal region BIMANUAL: uterus normal size, shape and consistency, no adnexal masses. Mild tenderness, generalized with palpation. NEURO: alert and oriented x3,exam grossly non-focal EXTREMITIES: normal ASSESSMENT AND PLAN: 1. RLQ abdominal pain - ICD9: 789.03, ICD10: R10.31 - UA DIP, URINE (POC) - PELVIC US WHI - URINE CULTURE - BACT/LISA VAG GRAM STAIN - Offered STD testing, patient declines - Will get pelvic U/S results and discussed possible EMB. - Discussed possible mirena for pelvic pain. Patient declines any treatment if all results normal. - No signs of acute abdominal concerns. If worsening or new symptoms to go to ER for further evaluation. Discussed possible rupture of ovarian cyst due to resolution of severe pain. -To return for appointment and discuss treatment options. Leisa Monteiro APRN.CNM CNOV Observed: 11/10/2018 Status: COMPLETED Source: [place] 4:00 PM [facility] REPOSITORY Office Visit (WOOB) RUSTYNACHOKORIN L ([id number]) 1970 F Date Time Provider Department 11/10/18 4:00 PM LEISA MONTEIRO (RISHI) WOOB During your visit today, we recorded the following information about you: Blood pressure Weight Last Period 130/82 90.7 kg 11/03/18 Leisa Monteiro APRN.RISHIM 11/15/2018 3:16 PM Signed Korin Marshall Rusty is a 48 year old female who presents for problem visit RLQ pelvic pain. HPI: Here today for RLQ pelvic pain over past 2 weeks. Pain is intermittent and comes and goes. Rates 8/10 at times. Yesterday it reached a 8/10 in pain then decreased. It felt like she got some relief after it reached that level of pain. Today is lessened and 3/10. Has history of IBS but uncertain if this is the cause. Denies any increased constipation or diarrhea, no N/V or signs of illness. Menses irregular but having monthly. Moderate-heavy bleeding from 3-10 days, may change tampon or pad every 2 hrs when it is heavy. LMP 11/03/18. Denies any increased vaginal discharge, itching, burning,or odor. Current partner x 5 years, declines STD testing. 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 PAST SURGICAL HISTORY Procedure Laterality Date - SECTION HX x2 - COLONOSCOPY 2010 Five Polyps benign - COLONOSCOPY 03/2017 - DILATION AND CURETTAGE - ORTHOPEDICS SURGERY HX Two knee surgeries on right knee - meniscus surgery - TUBAL LIGATION HX 09/28/2003 FAMILY HISTORY Problem Relation Age of Onset - Allergies Mother - Hypertension Father - Coronary Artery Disease Father 5 vessel CABG in 50's - other (heavy menstrual periods) Sister Had an ablation - Alzheimer's Disease No Family History - Breast Cancer No Family History - Ovarian cancer No Family History - Uterine Cancer No Family History - Colon Cancer No Family History - Prostate Cancer No Family History - Diabetes No Family History - Kidney Disease No Family History - Seizures No Family History - Stroke No Family History - Thyroid No Family History Social History Marital status: Spouse name: Years of education: Number of children: 2 Occupational 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 naproxen (NAPROSYN) 500 mg tablet Take 1 tablet by mouth twice daily as needed. Take with food. omeprazole (PRILOSEC) 20 mg capsule Take 1 capsule by mouth twice daily before meals. omega-3 fatty acids 1,000 mg cap Take 1 capsule by mouth once daily. lisinopril (ZESTRIL, PRINIVIL) 10 mg tablet Take 1 tablet by mouth once daily. dicyclomine (BENTYL) 10 mg capsule Take 1 capsule by mouth twice daily as needed. MULTIVITAMIN ORAL Take by mouth twice daily. metoprolol succinate ER (TOPROL XL) 25 mg 24 hr tablet Take 1 tablet by mouth once daily. (Patient not taking: Reported on 10/12/2018 ) No current facility-administered medications for this visit. Allergies As of Date: 11/10/2018 Allergen Noted Reaction VICODIN [HYDROCODONE-ACETAMINOPHE*03/02/2011 GI Upset Fully Assessed 11/10/2018 REVIEW OF SYSTEMS Abdomen: No bloating, early satiety, indigestion, or increased flatulence. No nausea, vomiting, diarrhea, or constipation. Bladder: No dysuria, gross hematuria, urinary frequency, urinary urgency, or incontinence. Breast: No breast lumps, nipple d/c, overlying skin changes, redness or skin retraction. Expanded ROS: N/A Allergies and current medication updated:Yes EXAM: BP 130/82 Wt 200 lb (90.7kg) LMP 11/03/2018 GENERAL: pleasant, female in no apparent distress HEENT: Normocephalic and atraumatic NECK: Supple and full range of motion DERMATOLOGY: Normal and without lesions CHEST: Clear to auscultation Normal inspiratory effort Regular rate and rhythm No murmurs, clicks, rubs or gallops ABDOMEN: soft, non-tender and no masses. No rebound guarding or tenderness. PELVIC: external genitalia normal, normal Bartholin's glands, urethra, [place]'s glands, no vulvar lesions, no cervical lesions, good vaginal support, physiologic discharge present, normal appearing perineal body and perianal region BIMANUAL: uterus normal size, shape and consistency, no adnexal masses. Mild tenderness, generalized with palpation. NEURO: alert and oriented x3,exam grossly non-focal EXTREMITIES: normal ASSESSMENT AND PLAN: 1. RLQ abdominal pain - ICD9: 789.03, ICD10: R10.31 - UA DIP, URINE (POC) - PELVIC US WHI - URINE CULTURE - BACT/LISA VAG GRAM STAIN - Offered STD testing, patient declines - Will get pelvic U/S results and discussed possible EMB. - Discussed possible mirena for pelvic pain. Patient declines any treatment if all results normal. - No signs of acute abdominal concerns. If worsening or new symptoms to go to ER for further evaluation. Discussed possible rupture of ovarian cyst due to resolution of severe pain. -To return for appointment and discuss treatment options. Leisa Monteiro APRN.XUAN Simmons Ma 11/10/2018 4:35 PM Signed Supervisor Data Processing offered: Patient declines. Referring Provider: SELF [200] Allergies As of Date: 11/10/2018 Noted Allergy Reaction VICODIN (HYDROCODONE-ACETAMINOPHE*03/02/2011 8 - GI Upset Date Reviewed: 11/10/2018 Reviewed by: Nicki Simmons Ma - Fully Assessed Reason for Visit: Pain [78] Cmt: RLQ Pain Primary Visit Diagnosis:RLQ abdominal pain [R10.31] Order(s):UA DIP, URINE (POC) [[id number]] Order #: [id number]. #:[id number] PELVIC US WHI [[id number]] Order #: [id number]: 1 URINE CULTURE [SQURCUL] Order #: [id number]. #:[id number] BACT/LISA VAG GRAM STAIN [SQBVCNSM] Order #: [id number]. #:[id number] Prescriptions as of 11/10/2018 Sig: CYCLOBENZAPRINE 10 MG TABLET Take 1 tablet by mouth three * NAPROXEN 500 MG TABLET Take 1 tablet by mouth twice * OMEPRAZOLE 20 MG CAPSULE,SAKSHI* Take 1 capsule by mouth twice* OMEGA-3 FATTY ACIDS 1,000 MG * Take 1 capsule by mouth once * LISINOPRIL 10 MG TABLET Take 1 tablet by mouth once d* DICYCLOMINE 10 MG CAPSULE Take 1 capsule by mouth twice* MULTIVITAMIN ORAL Take by mouth twice daily. 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 AVM (arteriovenous malformation) of colon [K55.*INVALID FOR* More... History of gestational diabetes [Z86.32] INVALID FOR* Mixed hyperlipidemia [E78.2] INVALID FOR* Migraine without aura and without status migrai*INVALID FOR* Well adult exam [Z00.00] INVALID FOR* More... Obesity, Class II, BMI 35-39.9 [E66.9] INVALID FOR* Muscle spasm [M62.838] INVALID FOR* More... Essential hypertension [I10] INVALID FOR* Sebaceous cyst [L72.3] INVALID FOR* More... Lipoma of neck [D17.0] INVALID FOR* More... Irritable bowel syndrome with both constipation*INVALID FOR* Acute back pain with sciatica, left [M54.42] INVALID FOR* Visit Notes: >> Nicki Spears Nov 10, 2018 4:11 PM Status: Signed Supervisor Data Processing offered: Patient declines. Disposition: Return if symptoms worsen or fail to improve, for Pelvic U/S. Follow-up and Disposition History Recorded Encounter Status:Closed by LEISA MONTEIRO on 11/15/18 PROGRESS Observed: 11/06/2018 Status: COMPLETED Source: [place] 1:50 PM [facility] REPOSITORY HNO ID: [id number] Author: Lisa (Pt) Mairan Service: (none) Author Type: Physical Therapist Type: Progress Notes Filed: 11/06/2018 2:39 PM Note Text: Episode Visit Count: 2 Therapist That Will Oversee The Plan Of Care: Lisa Fonseca Start of Care Date: 10/29/18 Onset Date: 09/28/18 REHABILITATION AND SPORTS THERAPY PHYSICAL THERAPY TREATMENT NOTE ASSESSMENT: Korin Suarez demonstrated improvements in exercise tolerance and pain level. The patient will continue to benefit from continued skilled physical therapy for her lumbar, hip deficits. PLAN FOR NEXT VISIT: progress HEP, stabilization as tolerated SUBJECTIVE: Started at a gym working with machines. Feels better, less burning sensation now. HEP compliant. Pain Score: 2/10 Pain Location: Hip - Left;Hip - Right Description: Sore Frequency: Intermittent Post Treatment Pain Score: No Change OBJECTIVE MEASURES WITH LEVEL OF FUNCTION: non tender to anterior hips TREATMENT: Therapeutic Exercise: 1: ab brace iso hip add 15x 2: bridge 15x 3: * ab brace with marching 10x ea 4: LTR legs on ball 10x 5: * clamshells 15x ea 6: * wall slides 10x 7: * rows blue 15x Skilled Intervention: Patient was educated in proper exercise technique and purpose for exercises. Skilled judgment was provided in selection of appropriate interventions. Provided written instruction for home exercise program to facilitate proper performance and compliance. Billing: [facility]: Therapeutic Exercise ([id number]): 1:1 time: 40 minutes (3 units: 38-52 mins) Total time: 42 minutes Lisa Fonseca PT CNTHERAPY Observed: 11/06/2018 Status: COMPLETED Source: [place] 1:45 PM [facility] REPOSITORY OT/PT/Speech Visit (SPTBR) KORIN SUAREZ ([id number]) 1970 F Date Time Provider Department 11/06/18 1:45 PM LISA FONSECA (PT) SPT[facility] Date Time Provider Department Center 11/06/2018 1:45 PM [id number], RYAN (PT) SPT[facility] Reason for Visit: Physical Therapy [503] Primary Visit Diagnosis:Acute back pain with sciatica, left [M54.42] Allergies As of Date: 11/06/2018 Noted Allergy Reaction VICODIN (HYDROCODONE-ACETAMINOPHE*03/02/2011 8 - GI Upset Date Reviewed: 09/04/2018 Reviewed by: Mahi Ramirez - Fully Assessed Prescriptions as of 11/06/2018 Sig: CYCLOBENZAPRINE 10 MG TABLET Take 1 tablet by mouth three * NAPROXEN 500 MG TABLET Take 1 tablet by mouth twice * METOPROLOL SUCCINATE ER 25 MG* Take 1 tablet by mouth once d* Patient not taking: Reported on 10/12/2018 OMEPRAZOLE 20 MG CAPSULE,SAKSHI* Take 1 capsule by mouth twice* OMEGA-3 FATTY ACIDS 1,000 MG * Take 1 capsule by mouth once * LISINOPRIL 10 MG TABLET Take 1 tablet by mouth once d* DICYCLOMINE 10 MG CAPSULE Take 1 capsule by mouth twice* MULTIVITAMIN ORAL Take by mouth twice daily. Progress Notes: Lisa Fonseca PT 11/06/2018 2:39 PM Signed Episode Visit Count: 2 Therapist That Will Oversee The Plan Of Care: Lisa Fonseca Start of Care Date: 10/29/18 Onset Date: 09/28/18 REHABILITATION AND SPORTS THERAPY PHYSICAL THERAPY TREATMENT NOTE ASSESSMENT: Korin Suarez demonstrated improvements in exercise tolerance and pain level. The patient will continue to benefit from continued skilled physical therapy for her lumbar, hip deficits. PLAN FOR NEXT VISIT: progress HEP, stabilization as tolerated SUBJECTIVE: Started at a gym working with machines. Feels better, less burning sensation now. HEP compliant. Pain Score: 2/10 Pain Location: Hip - Left;Hip - Right Description: Sore Frequency: Intermittent Post Treatment Pain Score: No Change OBJECTIVE MEASURES WITH LEVEL OF FUNCTION: non tender to anterior hips TREATMENT: Therapeutic Exercise: 1: ab brace iso hip add 15x 2: bridge 15x 3: * ab brace with marching 10x ea 4: LTR legs on ball 10x 5: * clamshells 15x ea 6: * wall slides 10x 7: * rows blue 15x Skilled Intervention: Patient was educated in proper exercise technique and purpose for exercises. Skilled judgment was provided in selection of appropriate interventions. Provided written instruction for home exercise program to facilitate proper performance and compliance. Billing: [facility]: Therapeutic Exercise ([id number]): 1:1 time: 40 minutes (3 units: 38-52 mins) Total time: 42 minutes Lisa Fonseca PT PROGRESS Observed: 10/29/2018 Status: COMPLETED Source: [place] 4:01 PM [facility] REPOSITORY HNO ID: [id number] Author: Lisa (Pt) Marian Service: (none) Author Type: Physical Therapist Type: Progress Notes Filed: 11/06/2018 1:56 PM Note Text: Episode Visit Count: 1 Therapist That Will Oversee The Plan Of Care: Lisa Fonseca Start of Care Date: 10/29/18 Onset Date: 09/28/18 Patient Identified by Name and Date of : Yes REHABILITATION AND SPORTS THERAPY PHYSICAL THERAPY EVALUATION PLAN OF CARE: Assessment: Korin Suarez presents with the chief complaint of low back pain with radiation. She presents with impairments of back pain, possibly hip injury pathology and limited tolerance to ADL's. She may benefit from skilled therapy services to improve her deficits and return to her prior level of activity, less painful. Prognosis: Good Good due to: current objective clinical presentation Goals for Episode of Care: created on 10/29/18 through 11/29/18 [place] in home exercise program. Patient will decrease pain to <2/10 with functional activities to allow patient to improve standing tolerance for ADLs. Patient will increase active ROM of her lumbar region to normal limit to allow pt to improved performance of ADLs. Perform functional activity with decreased report of symptoms/pain in 4-6 weeks. Planned Interventions, Frequency, and Duration: Current Frequency: 1x/week Duration: 4 weeks Total Number of Visits Planned: 4 Planned Treatment Interventions: Therapeutic exercise;Manual therapy PLAN FOR NEXT VISIT: progress HEP for stabilizatio, manual work PRN Patient demonstrates good understanding of plan of care and treatment. The above goals and plan of care were discussed and agreed upon by patient/family. 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 Developed bruising, numbness and tingling in her legs. Also notes heavier type lifting injury several years ago. More recent, has limited ability to bend, develops back pain left > right. Today presents with radiation to her left thigh and leg. Describes a burning sensation, at times pulling in her front hips. Notes history of left hip pop injury. 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 Cancer Clinical Reasoning: No identified risk factors. Infection Clinical Reasoning: No identified risk factors. Cauda Equina Syndrome Clinical Reasoning: No identified risk factors. Red Flags - Cervical Cancer Clinical Reasoning: No identified risk factors. Infection Clinical Reasoning: No identified risk factors. Spine History Symptoms Location at Onset: Back Symptoms Since Onset: Unchanged Pain is Worse Always: On the Move Pain is Better Always: Sitting Sleep Affected by Pain: Not affected by pain OBJECTIVE MEASURES WITH LEVEL OF FUNCTION: Posture / Alignment Posture: Rounded shoulders;Increased thoracic kyphosis;Decreased lumbar lordosis Reflexes - Lower Extremity R Patellar: 2+ R Achilles: 1+ L Patellar: 2+ L Achilles: 1+ Spine Palpation R Lumbar Spine Palpation Tenderness: Trochanteric bursa;TFL (Tensor fasciae latae);Spinous Process L Lumbar Spine Palpation Tenderness: Trochanteric bursa;TFL (Tensor fasciae latae);Spinous Process Lumbar Spine AROM Lumbar Flexion: Minimal limitation Lumbar Extension: Minimal limitation Lumbar R Side-Bend: Minimal limitation Lumbar L Side-Bend: Minimal limitation Lumbar R Rotation: Minimal limitation Lumbar L Rotation: Minimal limitation LE AROM R LE AROM: normal L LE AROM: normal LE Flexibility Flexibility: Hamstring Flexibility R Hamstring Flexibility: SLR 75 L Hamstring Flexibility: SLR 75 LE Strength R LE Strength: 5/5 L LE Strength: 5/5 Special Tests - Hip and Spine Hip and Spine Special Tests: Slump Test Slump Test: Left Negative Gait Gait Observation: normal kayleigh Education: Education Learning/educational needs: Home exercise program;Plan of Care Education Provided: Yes, see treatment interventions for education provided Education Provided To: Patient Education Mode/Type: Explanation/Discussion Response to Education/Teach Back: States/Identifies;Return Demonstration TREATMENT: Evaluation Therapeutic Exercise: 1: LTR 5x 2: ab brace iso hip add 10x 3: bridge 10x 4: standing hip flexor stretch 10 sec Skilled Intervention: Patient was educated in proper exercise technique and purpose for exercises. Skilled judgment was provided in selection of appropriate interventions. Provided written instruction for home exercise program to facilitate proper performance and compliance. Billing: [facility]: Evaluation - Low Complexity (20310) Therapeutic Exercise (57363): 1:1 time: 20 minutes (1 unit: 8-22 mins) Total time: 35 minutes Lisa Fonseca PT CNTHERAPY Observed: 10/29/2018 Status: COMPLETED Source: [place] 3:45 PM [facility] REPOSITORY OT/PT/Speech Visit (SPTBR) KORIN SUAREZ ([id number]) 1970 F Date Time Provider Department 10/29/18 3:45 PM LISA FONSECA (PT) SPTBR Date Time Provider Department Center 10/29/2018 3:45 PM [id number], RYAN (PT) SPTBR [facility] Kylah Reason for Visit: PT Eval [[id number]] Primary Visit Diagnosis:Acute back pain with sciatica, left [M54.42] Allergies As of Date: 10/29/2018 Noted Allergy Reaction VICODIN (HYDROCODONE-ACETAMINOPHE*03/02/2011 8 - GI Upset Date Reviewed: 09/04/2018 Reviewed by: Mahi Ramirez - Fully Assessed Prescriptions as of 10/29/2018 Sig: CYCLOBENZAPRINE 10 MG TABLET Take 1 tablet by mouth three * NAPROXEN 500 MG TABLET Take 1 tablet by mouth twice * METOPROLOL SUCCINATE ER 25 MG* Take 1 tablet by mouth once d* Patient not taking: Reported on 10/12/2018 OMEPRAZOLE 20 MG CAPSULE,SAKSHI* Take 1 capsule by mouth twice* OMEGA-3 FATTY ACIDS 1,000 MG * Take 1 capsule by mouth once * LISINOPRIL 10 MG TABLET Take 1 tablet by mouth once d* DICYCLOMINE 10 MG CAPSULE Take 1 capsule by mouth twice* MULTIVITAMIN ORAL Take by mouth twice daily. Progress Notes: Lisa Fonseca PT 11/06/2018 1:56 PM Addendum Episode Visit Count: 1 Therapist That Will Oversee The Plan Of Care: Lisa Fonseca Start of Care Date: 10/29/18 Onset Date: 09/28/18 Patient Identified by Name and Date of : Yes [facility] PHYSICAL THERAPY EVALUATION PLAN OF CARE: Assessment: Korin Suarez presents with the chief complaint of low back pain with radiation. She presents with impairments of back pain, possibly hip injury pathology and limited tolerance to ADL's. She may benefit from skilled therapy services to improve her deficits and return to her prior level of activity, less painful. Prognosis: Good Good due to: current objective clinical presentation Goals for Episode of Care: created on 10/29/18 through 11/29/18 [place] in home exercise program. Patient will decrease pain to <2/10 with functional activities to allow patient to improve standing tolerance for ADLs. Patient will increase active ROM of her lumbar region to normal limit to allow pt to improved performance of ADLs. Perform functional activity with decreased report of symptoms/pain in 4-6 weeks. Planned Interventions, Frequency, and Duration: Current Frequency: 1x/week Duration: 4 weeks Total Number of Visits Planned: 4 Planned Treatment Interventions: Therapeutic exercise;Manual therapy PLAN FOR NEXT VISIT: progress HEP for stabilizatio, manual work PRN Patient demonstrates good understanding of plan of care and treatment. The above goals and plan of care were discussed and agreed upon by patient/family. 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 Developed bruising, numbness and tingling in her legs. Also notes heavier type lifting injury several years ago. More recent, has limited ability to bend, develops back pain left > right. Today presents with radiation to her left thigh and leg. Describes a burning sensation, at times pulling in her front hips. Notes history of left hip pop injury. 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 Cancer Clinical Reasoning: No identified risk factors. Infection Clinical Reasoning: No identified risk factors. Cauda Equina Syndrome Clinical Reasoning: No identified risk factors. Red Flags - Cervical Cancer Clinical Reasoning: No identified risk factors. Infection Clinical Reasoning: No identified risk factors. Spine History Symptoms Location at Onset: Back Symptoms Since Onset: Unchanged Pain is Worse Always: On the Move Pain is Better Always: Sitting Sleep Affected by Pain: Not affected by pain OBJECTIVE MEASURES WITH LEVEL OF FUNCTION: Posture / Alignment Posture: Rounded shoulders;Increased thoracic kyphosis;Decreased lumbar lordosis Reflexes - Lower Extremity R Patellar: 2+ R Achilles: 1+ L Patellar: 2+ L Achilles: 1+ Spine Palpation R Lumbar Spine Palpation Tenderness: Trochanteric bursa;TFL (Tensor fasciae latae);Spinous Process L Lumbar Spine Palpation Tenderness: Trochanteric bursa;TFL (Tensor fasciae latae);Spinous Process Lumbar Spine AROM Lumbar Flexion: Minimal limitation Lumbar Extension: Minimal limitation Lumbar R Side-Bend: Minimal limitation Lumbar L Side-Bend: Minimal limitation Lumbar R Rotation: Minimal limitation Lumbar L Rotation: Minimal limitation LE AROM R LE AROM: normal L LE AROM: normal LE Flexibility Flexibility: Hamstring Flexibility R Hamstring Flexibility: SLR 75 L Hamstring Flexibility: SLR 75 LE Strength R LE Strength: 5/5 L LE Strength: 5/5 Special Tests - Hip and Spine Hip and Spine Special Tests: Slump Test Slump Test: Left Negative Gait Gait Observation: normal kayleigh Education: Education Learning/educational needs: Home exercise program;Plan of Care Education Provided: Yes, see treatment interventions for education provided Education Provided To: Patient Education Mode/Type: Explanation/Discussion Response to Education/Teach Back: States/Identifies;Return Demonstration TREATMENT: Evaluation Therapeutic Exercise: 1: LTR 5x 2: ab brace iso hip add 10x 3: bridge 10x 4: standing hip flexor stretch 10 sec Skilled Intervention: Patient was educated in proper exercise technique and purpose for exercises. Skilled judgment was provided in selection of appropriate interventions. Provided written instruction for home exercise program to facilitate proper performance and compliance. Billing: [facility]: Evaluation - Low Complexity (02692) Therapeutic Exercise (79666): 1:1 time: 20 minutes (1 unit: 8-22 mins) Total time: 35 minutes Lisa Fonseca PT Previous Version SHAVON Observed: 10/12/2018 Status: COMPLETED Source: [place] 4:40 PM [facility] REPOSITORY Office Visit (FAMPWS) KORIN SUAREZ ([id number]) 1970 F Date Time Provider Department 10/12/18 4:40 PM STEPHANIE TERRAZAS) MYRONPWS During your visit today, we recorded the following information about you: Pulse Respiration Blood pressure Weight 96/minute 14/minute 184/108 93.4 kg Stephanie Terrazas MD 10/12/2018 9:16 PM Signed Chief Complaint Patient presents with: pulled muscle in back: x 2 weeks - left hip into groin - popped today HPI Korin Suarez is a 48 year old female who presents here today for Above Complaints.. Pain started about 2 weeks ago while bent over getting an ornament out of a box. [place] her back go out at that time and since then has had constant burning/sharp pain in her left lower back/buttock with radiation to her left anterior hip and lateral leg to mid thigh. Exacerbated with lying down, sitting, lifting, bending. Admits to trouble sleeping at night due to pain. Treating with motrin 800 mg daily, foam roller which helps minimally. Denies loss of bowel/bladder control, numbness in the groin. Feels like symptoms worsening gradually. Past medical history, appointments, medications, allergies reviewed. 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 Previous Surgical History PAST SURGICAL HISTORY Procedure Laterality Date - SECTION HX x2 - COLONOSCOPY 2010 Five Polyps benign - COLONOSCOPY 03/2017 - DILATION AND CURETTAGE - ORTHOPEDICS SURGERY HX Two knee surgeries on right knee - meniscus surgery - TUBAL LIGATION HX 09/28/2003 Family History FAMILY HISTORY Problem Relation Age of Onset - Allergies Mother - Hypertension Father - Coronary Artery Disease Father 5 vessel CABG in 50's - other (heavy menstrual periods) Sister Had an ablation - Alzheimer's Disease No Family History - Breast Cancer No Family History - Ovarian cancer No Family History - Uterine Cancer No Family History - Colon Cancer No Family History - Prostate Cancer No Family History - Diabetes No Family History - Kidney Disease No Family History - Seizures No Family History - Stroke No Family History - Thyroid No Family History Patient Allergies ALLERGIES Allergen Reactions - Vicodin [Hydrocodon* GI Upset Current Medications Current Outpatient Prescriptions on File Prior to Visit: dicyclomine (BENTYL) 10 mg capsule Take 1 capsule by mouth twice daily as needed. lisinopril (ZESTRIL, PRINIVIL) 10 mg tablet Take 1 tablet by mouth once daily. MULTIVITAMIN ORAL Take by mouth twice daily. omega-3 fatty acids 1,000 mg cap Take 1 capsule by mouth once daily. cyclobenzaprine (FLEXERIL) 10 mg tablet Take 1 tablet by mouth three times daily as needed for Muscle Spasm. (Patient not taking: Reported on 10/12/2018 ) metoprolol succinate ER (TOPROL XL) 25 mg 24 hr tablet Take 1 tablet by mouth once daily. (Patient not taking: Reported on 10/12/2018 ) omeprazole (PRILOSEC) 20 mg capsule Take 1 capsule by mouth twice daily before meals. No current facility-administered medications on file prior to visit. 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 General Appearance: Well appearing, alert, in no acute distress, well-hydrated, well nourished.. Skin: Skin color, texture, turgor normal, no suspicious rashes or lesions. Back:no pain to palpation of vertebrae, good flexion and extension, good range of motion, reflexes are 2+ and symmetric, motor and sensory appear to be normal, negative SLR test, no evidence of scoliosis. Positive for TTP over left lumbar paraspinal muscles, left buttock, left lateral hip. Health Maintenance List BP CONTROLLED (<130/80) due on 1988 MAMMOGRAM due on 2010 PAP EVERY 3 YEARS due on 08/21/2019 ANNUAL PCP TEAM CHRONIC DISEASE VISIT due on 08/28/2019 DIABETES SCREEN due on 07/31/2021 LIPID SCREEN due on 07/31/2023 DTAP,TDAP,TD(2 - Td) due on 03/04/2027 HIV SCREEN Completed ASSESSMENT/PLAN: 1. Acute left-sided low back pain with left-sided sciatica - ICD9: 724.2, 724.3, ICD10: M54.42 Mechanical low back pain - Ice for localized tenderness - Warm moist heat for 20 min three times a day - NSAIDS- see orders - Muscle relaxant- see orders - PT consult - Patient given instructions use of medications as ordered, intermittent rest, back care exercise program, weight loss, improved posture, proper lifting techniques and intermittent use of heat - CYCLOBENZAPRINE 10 MG TABLET - KETOROLAC 30 MG/ML (1 ML) INJECTION SOLUTION - CONSULT TO PHYSICAL THERAPY - NAPROXEN 500 MG TABLET - CYCLOBENZAPRINE 10 MG TABLET - NAPROXEN 500 MG TABLET Stephanie Terrazas MD Referring Provider: SELF [[id number]] Allergies As of Date: 10/12/2018 Noted Allergy Reaction VICODIN (HYDROCODONE-ACETAMINOPHE*03/02/2011 8 - GI Upset Date Reviewed: 09/04/2018 Reviewed by: Mahi Ramirez - Fully Assessed Reason for Visit: pulled muscle in back [Other] Cmt: x 2 weeks - left hip into groin - popped today Reason For Visit History Recorded Primary Visit Diagnosis:Acute left-sided low back pain with left-sided sciatica [M54.42] Order(s):[] ketorolac 30 mg injection (TORADOL)Disp: Rfl: CONSULT TO PHYSICAL THERAPY [9080] Order #: [id number]: 1 cyclobenzaprine (FLEXERIL) 10 mg tabletTake 1 tablet by mouth three times daily as needed for Muscle Spasm or Pain.Disp: 60 tabletRfl: 1 naproxen (NAPROSYN) 500 mg tabletTake 1 tablet by mouth twice daily as needed. Take with food.Disp: 60 tabletRfl: 1 Prescriptions as of 10/12/2018 Sig: DICYCLOMINE 10 MG CAPSULE Take 1 capsule by mouth twice* LISINOPRIL 10 MG TABLET Take 1 tablet by mouth once d* MULTIVITAMIN ORAL Take by mouth twice daily. OMEGA-3 FATTY ACIDS 1,000 MG * Take 1 capsule by mouth once * CYCLOBENZAPRINE 10 MG TABLET Take 1 tablet by mouth three * METOPROLOL SUCCINATE ER 25 MG* Take 1 tablet by mouth once d* Patient not taking: Reported on 10/12/2018 NAPROXEN 500 MG TABLET Take 1 tablet by mouth twice * OMEPRAZOLE 20 MG CAPSULE,SAKSHI* Take 1 capsule by mouth twice* Problem List As Of Date 10/12/2018 Noted Resolved Gastroesophageal reflux disease with esophagiti*INVALID FOR* Hiatal hernia [K44.9] INVALID FOR* 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] INVALID FOR* History of colonic polyps [Z86.010] INVALID FOR* More... AVM (arteriovenous malformation) of colon [Q27.*INVALID FOR* More... History of gestational diabetes [Z86.32] INVALID FOR* Mixed hyperlipidemia [E78.2] INVALID FOR* Migraine without aura and without status migrai*INVALID FOR* Well adult exam [Z00.00] INVALID FOR* More... Obesity, Class II, BMI 35-39.9 [E66.9] INVALID FOR* Muscle spasm [M62.838] INVALID FOR* More... Essential hypertension [I10] INVALID FOR* Sebaceous cyst [L72.3] INVALID FOR* More... Lipoma of neck [D17.0] INVALID FOR* More... Irritable bowel syndrome with both constipation*INVALID FOR* Prescriptions ordered this encounter Disp Refills Start End CYCLOBENZAPRINE 10 MG TABLET 60 t* 1 10/12/2018 10/12/2018 Route: ORAL Sig: Take 1 tablet by mouth three times daily as needed for Muscle Spasm or Pain. KETOROLAC 30 MG/ML (1 ML) INJECTION * 10/12/2018 10/12/2018 Route: INTRAMUSCULA NAPROXEN 500 MG TABLET 60 t* 1 10/12/2018 10/12/2018 Route: ORAL Sig: Take 1 tablet by mouth twice daily as needed. Take with food. CYCLOBENZAPRINE 10 MG TABLET 60 t* 1 10/12/2018 Route: ORAL Sig: Take 1 tablet by mouth three times daily as needed for Muscle Spasm or Pain. NAPROXEN 500 MG TABLET 60 t* 1 10/12/2018 Route: ORAL Sig: Take 1 tablet by mouth twice daily as needed. Take with food. Medications Discontinued During This Encounter cyclobenzaprine (FLEXERIL) 10 mg tab* 30 t* 0 07/30/2018 10/12/2018 Class: Med Update Route: ORAL Sig: Take 1 tablet by mouth three times daily as needed for Muscle Spasm. Patient not taking: Reported on 10/12/2018 Disc: Reason for discontinue is not on file. cyclobenzaprine (FLEXERIL) 10 mg tab* 60 t* 1 10/12/2018 10/12/2018 Route: ORAL Sig: Take 1 tablet by mouth three times daily as needed for Muscle Spasm or Pain. Disc: Reason for discontinue is not on file. naproxen (NAPROSYN) 500 mg tablet 60 t* 1 10/12/2018 10/12/2018 Route: ORAL Sig: Take 1 tablet by mouth twice daily as needed. Take with food. Disc: Reason for discontinue is not on file. Letter Text Stephanie Terrazas M.D [address], [place] [id number] 10/12/2018 TO WHOM IT MAY CONCERN: This is to confirm that Korin Suarez had an appointment and was seen at the [facility] in the Department of Family Medicine by Bonita Gordon 10/12/2018 and may return to work on 10/15/2018. Sincerely yours, Stephanie Terrazas M.D Encounter Status:Closed by STEPHANIE TERRAZAS MD on 10/12/18 PROGRESS Observed: 10/12/2018 Status: COMPLETED Source: [place] 4:28 PM [facility] REPOSITORY HNO ID: [id number] Author: Stephanie Tran) Nini Service: (none) Author Type: Physician Type: Progress Notes Filed: 10/12/2018 9:16 PM Note Text: Chief Complaint Patient presents with: pulled muscle in back: x 2 weeks - left hip into groin - popped today HPI Korin Suarez is a 48 year old female who presents here today for Above Complaints.. Pain started about 2 weeks ago while bent over getting an ornament out of a box. [place] her back go out at that time and since then has had constant burning/sharp pain in her left lower back/buttock with radiation to her left anterior hip and lateral leg to mid thigh. Exacerbated with lying down, sitting, lifting, bending. Admits to trouble sleeping at night due to pain. Treating with motrin 800 mg daily, foam roller which helps minimally. Denies loss of bowel/bladder control, numbness in the groin. Feels like symptoms worsening gradually. Past medical history, appointments, medications, allergies reviewed. 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 Previous Surgical History PAST SURGICAL HISTORY Procedure Laterality Date - SECTION HX x2 - COLONOSCOPY 2010 Five Polyps benign - COLONOSCOPY 03/2017 - DILATION AND CURETTAGE - ORTHOPEDICS SURGERY HX Two knee surgeries on right knee - meniscus surgery - TUBAL LIGATION HX 09/28/2003 Family History FAMILY HISTORY Problem Relation Age of Onset - Allergies Mother - Hypertension Father - Coronary Artery Disease Father 5 vessel CABG in 50's - other (heavy menstrual periods) Sister Had an ablation - Alzheimer's Disease No Family History - Breast Cancer No Family History - Ovarian cancer No Family History - Uterine Cancer No Family History - Colon Cancer No Family History - Prostate Cancer No Family History - Diabetes No Family History - Kidney Disease No Family History - Seizures No Family History - Stroke No Family History - Thyroid No Family History Patient Allergies ALLERGIES Allergen Reactions - Vicodin [Hydrocodon* GI Upset Current Medications Current Outpatient Prescriptions on File Prior to Visit: dicyclomine (BENTYL) 10 mg capsule Take 1 capsule by mouth twice daily as needed. lisinopril (ZESTRIL, PRINIVIL) 10 mg tablet Take 1 tablet by mouth once daily. MULTIVITAMIN ORAL Take by mouth twice daily. omega-3 fatty acids 1,000 mg cap Take 1 capsule by mouth once daily. cyclobenzaprine (FLEXERIL) 10 mg tablet Take 1 tablet by mouth three times daily as needed for Muscle Spasm. (Patient not taking: Reported on 10/12/2018 ) metoprolol succinate ER (TOPROL XL) 25 mg 24 hr tablet Take 1 tablet by mouth once daily. (Patient not taking: Reported on 10/12/2018 ) omeprazole (PRILOSEC) 20 mg capsule Take 1 capsule by mouth twice daily before meals. No current facility-administered medications on file prior to visit. 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 General Appearance: Well appearing, alert, in no acute distress, well-hydrated, well nourished.. Skin: Skin color, texture, turgor normal, no suspicious rashes or lesions. Back:no pain to palpation of vertebrae, good flexion and extension, good range of motion, reflexes are 2+ and symmetric, motor and sensory appear to be normal, negative SLR test, no evidence of scoliosis. Positive for TTP over left lumbar paraspinal muscles, left buttock, left lateral hip. Health Maintenance List BP CONTROLLED (<130/80) due on 1988 MAMMOGRAM due on 2010 PAP EVERY 3 YEARS due on 08/21/2019 ANNUAL PCP TEAM CHRONIC DISEASE VISIT due on 08/28/2019 DIABETES SCREEN due on 07/31/2021 LIPID SCREEN due on 07/31/2023 DTAP,TDAP,TD(2 - Td) due on 03/04/2027 HIV SCREEN Completed ASSESSMENT/PLAN: 1. Acute left-sided low back pain with left-sided sciatica - ICD9: 724.2, 724.3, ICD10: M54.42 Mechanical low back pain - Ice for localized tenderness - Warm moist heat for 20 min three times a day - NSAIDS- see orders - Muscle relaxant- see orders - PT consult - Patient given instructions use of medications as ordered, intermittent rest, back care exercise program, weight loss, improved posture, proper lifting techniques and intermittent use of heat - CYCLOBENZAPRINE 10 MG TABLET - KETOROLAC 30 MG/ML (1 ML) INJECTION SOLUTION - CONSULT TO PHYSICAL THERAPY - NAPROXEN 500 MG TABLET - CYCLOBENZAPRINE 10 MG TABLET - NAPROXEN 500 MG TABLET Stephanie Terrazas MD PROGRESS Observed: 09/04/2018 Status: COMPLETED Source: [place] 2:26 PM [facility] REPOSITORY HNO ID: [id number] Author: Mahi Ramirez Service: (none) Author Type: Physician Type: Progress Notes Filed: 11/19/2018 3:36 PM Note Text: Korin Suarez is a 48 year old who presents to [facility]. Saw Dr. Hesham Pelayo in [place] for annual within last 1 year per her reports. Had EMB done for AUB by him. She states he recommended an ablation. She notes her last pap smear was 2016 and normal. Last mammogram was 2016 and normal. Hx of abnormal pap years ago per her report, denies having CKC or LEEP. Denies hx of abnormal mammograms. Having monthly periods. She is unsure of how many day cycles. Irregular in bleeding length. Bleeding anywhere from 3-10 days, with a 1 day break at times. Moderate to heavy bleeding. Having to change her tampon and pad every 2 hours when its at its heaviest. LMP 08/26/18. Started having hot flashes several months ago. 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 Having night sweats where she sleeps with towels, and is having to shower in the middle of the night. She states hot flashes can be every 30 min during the day. Has never taken anything for this. Also notes vaginal dryness and mood swings. She says she feels irritable. Component Latest Ref Rng AND Units 07/31/2018 FSH mU/mL 37.3 LH mU/mL 21.7 Obstetric History T0 L2 SAB1 TAB0 Ectopic1 Multiple0 Live Births0 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 : +Menorrhagia, +vaginal dryness Psych: +Mood swings and irritability Allergies and current medication updated:Yes EXAM: BP 122/84 Ht 5' 2.25 (1.58m) Wt 203 lb 3.2 oz (92.2kg) LMP 08/24/2018 BMI 36.87 kg/(m2). GENERAL: pleasant, female in no apparent distress HEENT: Normocephalic and atraumatic NECK: full range of motion DERMATOLOGY: Normal and without lesions CHEST: Normal inspiratory effort NEURO: alert and oriented x3,exam grossly non-focal EXTREMITIES: normal ASSESSMENT/PLAN: Korin was seen today for new patient. Diagnoses and all orders for this visit: Encounter to establish care Menorrhagia with regular cycle - CBC Perimenopausal vasomotor symptoms Perimenopause Other orders - Cancel: ALEXSANDER SCREENING; Future - Cancel: PAP FLUID CERVICAL SCREENING Health Maintenance: ? Patient reports last pap smear was normal in 2017 and last mammogram was normal in 2017 ? Discussed guidelines for co-testing q 5 years and mammogram q 1 year ? 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 Patient does not want menorrhagia treated at this time ? CBC today ? Discussed Mirena IUD or ablation. Patient not interested in these options currently ? Hx of EMB by prior kennel helper - Will get records to assess prior workup ? Discussed possible repeat EMB and pelvic US Vasomotor symptoms: ? Discussed perimenopause and provided her with handout to read on menopause ? Reviewed average age of menopause and expectations RTO 3 months for follow up Mahi Ramirez DO CNOV Observed: 09/04/2018 Status: COMPLETED Source: [place] 2:00 PM [facility] REPOSITORY Office Visit (WOOB) NACHO SUAREZROXANNE Marshall ([id number]) 1970 F Date Time Provider Department 09/04/18 2:00 PM MAHI RAMIREZ During your visit today, we recorded the following information about you: Blood pressure Weight Height 122/84 92.2 kg 1.581 m Mahi Ramirez MD 11/19/2018 3:36 PM Addendum Korin Marshall Rusty is a 48 year old who presents to [facility] care. Saw Dr. Hesham Pelayo in [place] for annual within last 1 year per her reports. Had EMB done for AUB by him. She states he recommended an ablation. She notes her last pap smear was 2017 and normal. Last mammogram was 2017 and normal. Hx of abnormal pap years ago per her report, denies having CKC or LEEP. Denies hx of abnormal mammograms. Having monthly periods. She is unsure of how many day cycles. Irregular in bleeding length. Bleeding anywhere from 3-10 days, with a 1 day break at times. Moderate to heavy bleeding. Having to change her tampon and pad every 2 hours when its at its heaviest. LMP 08/26/18. Started having hot flashes several months ago. 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 Having night sweats where she sleeps with towels, and is having to shower in the middle of the night. She states hot flashes can be every 30 min during the day. Has never taken anything for this. Also notes vaginal dryness and mood swings. She says she feels irritable. Component Latest Ref Rng AND Units 07/31/2018 FSH mU/mL 37.3 LH mU/mL 21.7 Obstetric History T0 L2 SAB1 TAB0 Ectopic1 Multiple0 Live Births0 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 : +Menorrhagia, +vaginal dryness Psych: +Mood swings and irritability Allergies and current medication updated:Yes EXAM: BP 122/84 Ht 5' 2.25 (1.58m) Wt 203 lb 3.2 oz (92.2kg) LMP 08/24/2018 BMI 36.87 kg/(m2). GENERAL: pleasant, female in no apparent distress HEENT: Normocephalic and atraumatic NECK: full range of motion DERMATOLOGY: Normal and without lesions CHEST: Normal inspiratory effort NEURO: alert and oriented x3,exam grossly non-focal EXTREMITIES: normal ASSESSMENT/PLAN: Korin was seen today for new patient. Diagnoses and all orders for this visit: Encounter to establish care Menorrhagia with regular cycle - CBC Perimenopausal vasomotor symptoms Perimenopause Other orders - Cancel: ALEXSANDER SCREENING; Future - Cancel: PAP FLUID CERVICAL SCREENING Health Maintenance: ? Patient reports last pap smear was normal in 2017 and last mammogram was normal in 2017 ? Discussed guidelines for co-testing q 5 years and mammogram q 1 year ? 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 Patient does not want menorrhagia treated at this time ? CBC today ? Discussed Mirena IUD or ablation. Patient not interested in these options currently ? Hx of EMB by prior kennel helper - Will get records to assess prior workup ? Discussed possible repeat EMB and pelvic US Vasomotor symptoms: ? Discussed perimenopause and provided her with handout to read on menopause ? Reviewed average age of menopause and expectations RTO 3 months for follow up Mahi Ramirez DO Referring Provider: WANDA MORALES(OMER) [[id number]] Allergies As of Date: 09/04/2018 Noted Allergy Reaction VICODIN (HYDROCODONE-ACETAMINOPHE*03/02/2011 8 - GI Upset Date Reviewed: 09/04/2018 Reviewed by: Mahi Ramirez - Fully Assessed Reason for Visit: New Patient [172] Primary Visit Diagnosis:Encounter to establish care [Z76.89] Other Visit Diagnoses:Menorrhagia with regular cycle [N92.0] Perimenopausal vasomotor symptoms [N95.1] Perimenopause [N95.1] Prescriptions as of 09/04/2018 Sig: METOPROLOL SUCCINATE ER 25 MG* Take 1 tablet by mouth once d* OMEPRAZOLE 20 MG CAPSULE,SAKSHI* Take 1 capsule by mouth twice* OMEGA-3 FATTY ACIDS 1,000 MG * Take 1 capsule by mouth once * LISINOPRIL 10 MG TABLET Take 1 tablet by mouth once d* DICYCLOMINE 10 MG CAPSULE Take 1 capsule by mouth twice* X CYCLOBENZAPRINE 10 MG TABLET Take 1 tablet by mouth three * Patient not taking: Reported on 10/12/2018 MULTIVITAMIN ORAL Take by mouth twice daily. Problem List As Of Date 09/04/2018 Noted Resolved Gastroesophageal reflux disease with esophagiti*INVALID FOR* Hiatal hernia [K44.9] INVALID FOR* 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] INVALID FOR* History of colonic polyps [Z86.010] INVALID FOR* More... AVM (arteriovenous malformation) of colon [K55.*INVALID FOR* More... History of gestational diabetes [Z86.32] INVALID FOR* Mixed hyperlipidemia [E78.2] INVALID FOR* Migraine without aura and without status migrai*INVALID FOR* More... Well adult exam [Z00.00] INVALID FOR* More... Obesity, Class II, BMI 35-39.9 [E66.9] INVALID FOR* Muscle spasm [M62.838] INVALID FOR* More... Essential hypertension [I10] INVALID FOR* Sebaceous cyst [L72.3] INVALID FOR* More... Lipoma of neck [D17.0] INVALID FOR* More... Irritable bowel syndrome with both constipation*INVALID FOR* Level of Service: NEW PATIENT VISIT LEVEL 3 [[id number]] Disposition: Return in 3 years (on 09/04/2021) for SW - f/u menorrhagia and vasomotor symptoms. 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 Patient reports that since starting the lisinopril she has felt tired. So she has been taking at night. Last 3 Encounter BP Readings: Date: BP: 08/28/2018 161/95 07/30/2018 146/96 03/04/2017 143/94[karlene bp (from Extended Vitals)[ Had SE to the imitrex. Prefers not to take those anymore. Feeling very stressed right now. Very emotional. Daughter is leaving for [employer] after graduation. She just feels like she is being mean. Is gigi-menopausal and thinks this is part of the issue. Past medical history, appointments, medications, allergies reviewed. 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 Previous Surgical History PAST SURGICAL HISTORY Procedure Laterality Date - SECTION HX - COLONOSCOPY 2010 Five Polyps benign - COLONOSCOPY 03/2017 - ORTHOPEDICS SURGERY HX Two knee surgeries on right knee - meniscus surgery Family History FAMILY HISTORY Problem Relation Age of Onset - Allergies Mother - Hypertension Father - Coronary Artery Disease Father 5 vessel CABG in 50's - Alzheimer's Disease No Family History - Breast Cancer No Family History - Ovarian cancer No Family History - Uterine Cancer No Family History - Colon Cancer No Family History - Prostate Cancer No Family History - Diabetes No Family History - Kidney Disease No Family History - Seizures No Family History - Stroke No Family History - Thyroid No Family History Patient Allergies ALLERGIES Allergen Reactions - Vicodin [Hydrocodon* GI Upset Current Medications Current Outpatient Prescriptions on File Prior to Visit: omeprazole (PRILOSEC) 20 mg capsule Take 1 capsule by mouth twice daily before meals. omega-3 fatty acids 1,000 mg cap Take 1 capsule by mouth once daily. cyclobenzaprine (FLEXERIL) 10 mg tablet Take 1 tablet by mouth three times daily as needed for Muscle Spasm. lisinopril (ZESTRIL, PRINIVIL) 10 mg tablet Take 1 tablet by mouth once daily. dicyclomine (BENTYL) 10 mg capsule Take 1 capsule by mouth twice daily as needed. MULTIVITAMIN ORAL Take by mouth twice daily. SUMAtriptan (IMITREX) 100 mg tablet Take one with onset of migraine. May repeat in 2 hrs. Max is 2 tabs in 24 hrs. (Patient not taking: Reported on 08/28/2018 ) No current facility-administered medications on file prior to visit. 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 General Appearance: Well appearing, alert, in no acute distress, well-hydrated, well nourished.. Neck: Supple, no adenopathy; thyroid symmetric, normal size, no bruits. Lungs: Lungs clear to auscultation. No wheezing, rhonchi, rales. Heart: RRR without murmur, gallop, or rubs. No ectopy. Extremities: No deformities, edema, skin discoloration, clubbing or cyanosis. Good capillary refill. . Peripheral Pulses: Normal. Health Maintenance List BP CONTROLLED (<130/80) due on 1988 MAMMOGRAM due on 2010 ANNUAL PCP TEAM CHRONIC DISEASE VISIT due on 07/30/2019 PAP EVERY 3 YEARS due on 08/21/2019 DIABETES SCREEN due on 07/31/2021 LIPID SCREEN due on 07/31/2023 DTAP,TDAP,TD(2 - Td) due on 03/04/2027 HIV SCREEN Completed Data reviewed ASSESSMENT/PLAN: 1. Essential hypertension - ICD9: 401.9, ICD10: I10 (primary diagnosis) - poor control - Add metoprolol (Lopressor/Toprol) - Recommended regular aerobic exercise. - Recommend home blood pressure monitoring, to bring results in on next visit - Goal of BP <130/80 2. Encounter for gynecological examination without abnormal finding - ICD9: V72.31, ICD10: Z01.419 - Will set up to [facility] care with anesthesiology technologist - CONSULT TO GYNECOLOGY 3. Migraine without aura and without status migrainosus, not intractable - ICD9: 346.10, ICD10: G43.009 Add toprol WANDA MORALES PA-C CNOV Observed: 08/28/2018 Status: COMPLETED Source: [place] 3:00 PM [facility] REPOSITORY Office Visit (FAMPWS) KORIN SUAREZ ([id number]) 1970 F Date Time Provider Department 08/28/18 3:00 PM KAYY MORALES) FAMJenniferWS During your visit today, we recorded the following information about you: Pulse Respiration Blood pressure Weight 79/minute 18/minute 144/90 93 kg Last Period 08/24/18 WANDA MORALES PA-C 08/28/2018 4:17 PM Signed Chief Complaint Patient presents with: Recheck: HTN, migraines HPI Korin Suarez is a 48 year old female who presents here today for Recheck. Patient reports that since starting the lisinopril she has felt tired. So she has been taking at night. Last 3 Encounter BP Readings: Date: BP: 08/28/2018 161/95 07/30/2018 146/96 03/04/2017 143/94[karlene bp (from Extended Vitals)[ Had SE to the imitrex. Prefers not to take those anymore. Feeling very stressed right now. Very emotional. Daughter is leaving for [employer] after graduation. She just feels like she is being mean. Is gigi-menopausal and thinks this is part of the issue. Past medical history, appointments, medications, allergies reviewed. 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 Previous Surgical History PAST SURGICAL HISTORY Procedure Laterality Date - SECTION HX - COLONOSCOPY 2010 Five Polyps benign - COLONOSCOPY 03/2017 - ORTHOPEDICS SURGERY HX Two knee surgeries on right knee - meniscus surgery Family History FAMILY HISTORY Problem Relation Age of Onset - Allergies Mother - Hypertension Father - Coronary Artery Disease Father 5 vessel CABG in 50's - Alzheimer's Disease No Family History - Breast Cancer No Family History - Ovarian cancer No Family History - Uterine Cancer No Family History - Colon Cancer No Family History - Prostate Cancer No Family History - Diabetes No Family History - Kidney Disease No Family History - Seizures No Family History - Stroke No Family History - Thyroid No Family History Patient Allergies ALLERGIES Allergen Reactions - Vicodin [Hydrocodon* GI Upset Current Medications Current Outpatient Prescriptions on File Prior to Visit: omeprazole (PRILOSEC) 20 mg capsule Take 1 capsule by mouth twice daily before meals. omega-3 fatty acids 1,000 mg cap Take 1 capsule by mouth once daily. cyclobenzaprine (FLEXERIL) 10 mg tablet Take 1 tablet by mouth three times daily as needed for Muscle Spasm. lisinopril (ZESTRIL, PRINIVIL) 10 mg tablet Take 1 tablet by mouth once daily. dicyclomine (BENTYL) 10 mg capsule Take 1 capsule by mouth twice daily as needed. MULTIVITAMIN ORAL Take by mouth twice daily. SUMAtriptan (IMITREX) 100 mg tablet Take one with onset of migraine. May repeat in 2 hrs. Max is 2 tabs in 24 hrs. (Patient not taking: Reported on 08/28/2018 ) No current facility-administered medications on file prior to visit. 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 General Appearance: Well appearing, alert, in no acute distress, well-hydrated, well nourished.. Neck: Supple, no adenopathy; thyroid symmetric, normal size, no bruits. Lungs: Lungs clear to auscultation. No wheezing, rhonchi, rales. Heart: RRR without murmur, gallop, or rubs. No ectopy. Extremities: No deformities, edema, skin discoloration, clubbing or cyanosis. Good capillary refill. . Peripheral Pulses: Normal. Health Maintenance List BP CONTROLLED (<130/80) due on 1988 MAMMOGRAM due on 2010 ANNUAL PCP TEAM CHRONIC DISEASE VISIT due on 07/30/2019 PAP EVERY 3 YEARS due on 08/21/2019 DIABETES SCREEN due on 07/31/2021 LIPID SCREEN due on 07/31/2023 DTAP,TDAP,TD(2 - Td) due on 03/04/2027 HIV SCREEN Completed Data reviewed ASSESSMENT/PLAN: 1. Essential hypertension - ICD9: 401.9, ICD10: I10 (primary diagnosis) - poor control - Add metoprolol (Lopressor/Toprol) - Recommended regular aerobic exercise. - Recommend home blood pressure monitoring, to bring results in on next visit - Goal of BP <130/80 2. Encounter for gynecological examination without abnormal finding - ICD9: V72.31, ICD10: Z01.419 - Will set up to [facility] care with anesthesiology technologist - CONSULT TO GYNECOLOGY 3. Migraine without aura and without status migrainosus, not intractable - ICD9: 346.10, ICD10: G43.009 Add toprol WANDA MORALES PA-C Referring Provider: HUSSAIN ACKERMAN [[id number]] Allergies As of Date: 08/28/2018 Noted Allergy Reaction VICODIN (HYDROCODONE-ACETAMINOPHE*03/02/2011 8 - GI Upset Date Reviewed: 08/28/2018 Reviewed by: Nikki ([facility]) MARE Koo - Fully Assessed Reason for Visit: Recheck [92] Cmt: HTN, migraines Primary Visit Diagnosis:Essential hypertension [I10] Other Visit Diagnoses:Encounter for gynecological examination without abnormal finding [Z01.419] Migraine without aura and without status migrainosus, not intractable [G43.009] Order(s):metoprolol succinate ER (TOPROL XL) 25 mg 24 hr tabletTake 1 tablet by mouth once daily.Disp: 30 tabletRfl: 1 CONSULT TO GYNECOLOGY [9013] Order #: [id number]: 1 Prescriptions as of 08/28/2018 Sig: OMEPRAZOLE 20 MG CAPSULE,SAKSHI* Take 1 capsule by mouth twice* OMEGA-3 FATTY ACIDS 1,000 MG * Take 1 capsule by mouth once * CYCLOBENZAPRINE 10 MG TABLET Take 1 tablet by mouth three * LISINOPRIL 10 MG TABLET Take 1 tablet by mouth once d* DICYCLOMINE 10 MG CAPSULE Take 1 capsule by mouth twice* MULTIVITAMIN ORAL Take by mouth twice daily. METOPROLOL SUCCINATE ER 25 MG* Take 1 tablet by mouth once d* Problem List As Of Date 08/28/2018 Noted Resolved Gastroesophageal reflux disease with esophagiti*INVALID FOR* Priority: A Hiatal hernia [K44.9] INVALID FOR* Priority: A 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] INVALID FOR* Priority: D History of colonic polyps [Z86.010] INVALID FOR* Priority: C More... 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 History of gestational diabetes [Z86.32] INVALID FOR* Priority: B Mixed hyperlipidemia [E78.2] INVALID FOR* Priority: A Migraine without aura and without status migrai*INVALID FOR* Priority: A Well adult exam [Z00.00] INVALID FOR* Priority: E More... Obesity, Class II, BMI 35-39.9 [E66.9] INVALID FOR* Priority: B Muscle spasm [M62.838] INVALID FOR* Priority: M More... Essential hypertension [I10] INVALID FOR* Priority: A Sebaceous cyst [L72.3] INVALID FOR* Priority: D More... Lipoma of neck [D17.0] INVALID FOR* Priority: D More... Irritable bowel syndrome with both constipation*INVALID FOR* Priority: C Prescriptions ordered this encounter Disp Refills Start End METOPROLOL SUCCINATE ER 25 MG TABLET* 30 t* 1 08/28/2018 Route: ORAL Sig: Take 1 tablet by mouth once daily. Medications Discontinued During This Encounter SUMAtriptan (IMITREX) 100 mg tablet 9 ta* 5 07/30/2018 08/28/2018 Sig: Take one with onset of migraine. May repeat in 2 hrs. Max is 2 tabs in 24 hrs. Patient not taking: Reported on 08/28/2018 Disc: Reason for discontinue is not on file. Disposition: Return in about 3 weeks (around 09/18/2018). Follow-up and Disposition History Recorded Letter Text Wanda Morales PA-C [address], [place] [address] 08/28/2018 TO WHOM IT MAY CONCERN: This is to confirm that Korin Suarez had an appointment and was seen at the [facility] in the Department of Family Medicine by Parker Saez 08/28/2018. Sincerely yours, Wanda Morales PA-C Encounter Status:Closed by WANDA CABAN on 08/28/18 PERIOD / VOLUME Collected: 08/08/2018 Status: F Source: [place] 6:00 AM [facility] REPOSITORY TYPE CODE TESTS RESULT OUT OF REFERENCE UNITS RANGE LAB PER hr Period 24 LAB VOL mL Volume 1230 LAB COLSDT Collection Start [id number] Date LAB COLSTM Collection Start 00 Time LAB COLEDT Collection End [id number] Date LAB COLETM Collection End 0600 Time Performed By: #### PV #### [facility] [address] [place], [place] [address] #### UFRCRT #### [employer] [address] [place] [address] [phone] FREE JFEF, UR Collected: 08/08/2018 Status: F [facility] REPOSITORY TYPE CODE TESTS RESULT OUT OF REFERENCE UNITS RANGE LAB UCORDL mg/dL UR, Creatinine mg/dL 139 LAB UCORDY 700-1600 mg/d High UR,Creatinine 1710 mg/day LAB UFCUGL ug/L UR Jeff Free ug/L 14.90 LAB TUCORF hr Collect Lgth, UFRCRT 24 LAB VUCORF mL Total Volume, UFRCRT 1230 LAB UFCUGD <=45.0 ug/d UR Jeff Free ug/d 18.3 LAB UFCUGG ug/g HAND STONE POLISHER UR Cortisol ug/g 10.72 manager creative Result Comment: (NOTE) Reference Interval: Cortisol ug/g manager creative Female Prepubertal: Less than 25 ug/g manager creative 18 years and older: Less than 24 ug/g manager creative : Less than 59 ug/g manager creative Male Prepubertal: Less than 25 ug/g manager creative 18 years and older: Less than 32 ug/g manager creative LAB UFCINT UR Jeff Free Interp SEE NOTE Result Comment: (NOTE) INTERPRETIVE INFORMATION: Cortisol Urine Free by LC-MS/MS The optimal specimen for this testing is a 24-hour urine collection. Mass per day calculations are not reported for the following specimen types: a random collection, a collection with duration of less than 20 hours, a collection with duration of greater than 28 hours, or a collection with total volume less than 400 mL or greater than 5000 mL. Ratios to creatinine may be useful for these evaluations. Baseline urinary free cortisol excretion less than 5 ug/d may be consistent with adrenal insufficiency. Access complete set of age- and/or gender-specific reference intervals for this test in the [facility] Test Directory ([email or web address]). Test developed and characteristics determined by [employer]. See Compliance Statement B: [email or web address] Performed by [employer], [address] [place] [address] [email or web address], Pablo Price MD, Lab. Director Performed By: #### PV #### [facility] [address] [place], [place] [address] #### UFRCRT #### [facility] [facility] [address] [place] [address] [phone] URINALYSIS WITH Collected: 07/31/2018 Status: F Source: [facility] 8:25 AM [facility] REPOSITORY TYPE CODE TESTS RESULT OUT OF RANGE REFERENCE UNITS LAB UCOL Yellow Color Yellow LAB [facility] Clear Clarity Abnormal Cloudy Alert LAB UGLUC Negative mg/dL Glucose, Urine Negative LAB UBIL Negative Bilirubin, Urine Negative LAB UKET Negative Ketones, Urine Negative LAB USPG 1.005-1.030 Specific [place], Ur 1.023 LAB UHGB Negative Hemoglobin/Blood, Negative Ur LAB UPH 4.5-8.0 pH 5.0 LAB UPROT Negative mg/dL Protein, Urine Negative LAB UUROB Normal Urobilinogen Normal LAB UNITR Negative Nitrites Negative LAB ULKEST Negative Leukest Abnormal 2+ Alert LAB UCOM Comments SEE COMMENT Result Comment: N/A LAB UMCOM Urine SEE Adria Comment COMMENT Result Comment: Result rechecked. LAB UWBC 0-5 /HPF WBC 0-5 LAB URBC 0-3 /HPF RBC 0-3 LAB UCAST 0 /LPF Abnormal Alert Cast SEE COMMENT Result Comment: 1-3 Hyaline Cast LAB UEPI /HPF Epithelial SEE Cells COMMENT Result Comment: Few Squamous Epithelial Cells LAB UCRYS 0 /HPF Abnormal Alert Crystals SEE COMMENT Result Comment: Few Calcium Oxalate Crystal Performed By: #### UAWMIC #### [facility] [address] [place], [place] [address] HEMOGLOBIN A1C Collected: 07/31/2018 Status: F Source: [place] 8:25 AM [facility] REPOSITORY TYPE CODE TESTS RESULT OUT OF REFERENCE UNITS RANGE LAB HGBA1C 4.3-5.6 % Hemoglobin A1c 5.2 LAB HBA0 mg/dL Est. Average Glucose 103 Result Comment: eAG: (Estimated average glucose) is a calculated value from HgbA1c and is employment representative of the average blood glucose level in the last 2-3 month period. Performed By: #### HBA1C, CMP, LIPB, FSH, LH, FT4, TSH #### [facility] [address] [place], [place] [address] COMP METABOLIC PANEL Collected: 07/31/2018 Status: F Source: [place] 8:25 AM [facility] REPOSITORY TYPE CODE TESTS RESULT OUT OF REFERENCE UNITS RANGE LAB TP 6.3-8.0 g/dL Protein, Total 6.9 LAB ALB 3.9-4.9 g/dL Albumin 4.3 LAB CA 8.5-10.2 mg/dL Calcium, Total 9.6 LAB TBIL 0.2-1.3 mg/dL Bilirubin, Total 0.5 LAB ALKP 34-123 U/L Alkaline Phosphatase 59 LAB AST 13-35 U/L AST 35 LAB GLU 74-99 mg/dL Glucose 93 Result Comment: The [place] Diabetes [employer] (ADA) provides guidance for cutoff values for fasting glucose and random glucose. The ADA defines fasting as no caloric intake for at least 8 hours. Fas ting plasma glucose results between 100 to 125 mg/dL indicate increased risk for diabetes (prediabetes). Fasting plasma glucose results greater than or equal to 126 mg/dL meet the criteria for diagnosis of diabetes. In the absence of unequivocal hyperglycemia, results should be confirmed by repeat testing. In a patient with classic symptoms of hyperglycemia or hyperglycemic crisis, random plasma glucose results greater than or equal to 200 mg/dL meet the criteria for diagnosis of diabetes. Reference: Standards of Medical Care in Diabetes 2016, [place] Diabetes [employer]. Diabetes Care. 2016.39(Suppl 1). LAB BUN 7-21 mg/dL BUN 15 LAB CRET 0.58-0.96 mg/dL Creatinine 0.82 LAB NA 136-144 mmol/L Sodium 139 LAB K 3.7-5.1 mmol/L Potassium 4.2 LAB CL 97-105 mmol/L Chloride 102 LAB CO2 22-30 mmol/L CO2 23 LAB AGAP 9-18 mmol/L Anion Gap 14 LAB ALT 7-38 U/L ALT 35 LAB GFRAA eGFR- Amer. >60 LAB GFRNAA . eGFR-All Other Races >60 Result Comment: eGFR (Estimated GFR) Units of measure: mL/min/1.73 meters squared eGFR is derived from the reexpressed MDRD Study equation using the following parameters: serum creatinine, age, gender and race. The creatinine assay has been calibrated to be traceable to IDMS. An eGFR <60 mL/min/1.73m2 for >3 months is consistent with chronic kidney disease. Refer to KDOQI guidelines for clinical interpretation. In patients with unstable renal function, e.g. those with acute kidney injury, the eGFR may not accurately reflect actual GFR. Performed By: #### HBA1C, CMP, LIPB, FSH, LH, FT4, TSH #### [facility] [address] [place], [place] [address] LIPID PANEL, BASIC Collected: 07/31/2018 Status: F Source: [place] 8:25 AM [facility] REPOSITORY TYPE CODE TESTS RESULT OUT OF REFERENCE UNITS RANGE LAB CHOL <200 mg/dL Cholesterol High 231 Result Comment: <200 mg/dL, Desirable 200-239 mg/dL, Borderline high >239 mg/dL, High LAB TRIGLY <150 mg/dL Triglyceride High 197 Result Comment: <150 mg/dL, Normal 150-199 mg/dL, Borderline high 200-499 mg/dL, High >499 mg/dL, Very high LAB HDL >39 mg/dL HDL-Cholesterol 47 Result Comment: 40-59 mg/dL, Acceptable >59 mg/dL, High: Negative risk factor for coronary heart disease <40 mg/dL, Low: Positive risk factor for coronary heart disease LAB LDL <100 mg/dL LDL-Cholesterol High 145 Result Comment: <100 mg/dL, Optimal 100-129 mg/dL, Near optimal/above optimal 130-159 mg/dL, Borderline high 160-189 mg/dL, High >189 mg/dL, Very high Secondary prevention optimal LDL Cholesterol levels are recommended to be < 70 mg/dL LAB NONHDL <130 mg/dL Non HDL High Cholesterol 184 Result Comment: <130 mg/dL, Optimal 130-159 mg/dL, Near optimal/above optimal 160-189 mg/dL, Borderline high 190-219 mg/dL, High >219 mg/dL, Very high Secondary prevention optimal non HDL Cholesterol levels are recommended to be < 100 mg/dL LAB FT hrs Fasting Time 12 LAB VLDL <30 mg/dL High VLDL Cholesterol 39 LAB TCHDL <5.10 TC:HDL Ratio 4.91 LAB LDLHDL <2.54 High LDL:HDL Ratio 3.09 Result Comment: Reference: 1. National Cholesterol Education Program ATP III Guideline At-A-Glance Quick Desk Reference: National Heart, Lung, and Blood [place]. National Institutes of Health. 2001: NIH Publication No. 01-3305. 2. An International Atherosclerosis Society position paper: global recommendations for the management of dyslipidemia: executive summary, Atherosclerosis. 2014: 232(2):410-413. Performed By: #### HBA1C, CMP, LIPB, FSH, LH, FT4, TSH #### [facility] [address] [place] [id number] FSH Collected: 07/31/2018 Status: F Source: [place] 8:25 AM [facility] REPOSITORY TYPE CODE TESTS RESULT OUT OF RANGE REFERENCE UNITS LAB FSH mU/mL FSH 37.3 Result Comment: Reference range: Follicular: 2-11 Midcycle: 10-30 Luteal: 1-9 Post Lott: 20-100 Performed By: #### HBA1C, CMP, LIPB, FSH, LH, FT4, TSH #### [facility] [address] [place], [place] [address] LH Collected: 07/31/2018 Status: F Source: [facility] 8:25 AM [facility] REPOSITORY TYPE CODE TESTS RESULT OUT OF RANGE REFERENCE UNITS LAB LH mU/mL LH 21.7 Result Comment: Reference range: Follicular: 1-12 Midcycle: 20-90 Luteal: 1-10 Post Felicia: >20 Performed By: #### HBA1C, CMP, LIPB, FSH, LH, FT4, TSH #### [facility] [address] [place] [address] FREE T4 Collected: 07/31/2018 Status: F Source: [place] 8:25 AM [facility] REPOSITORY TYPE CODE TESTS RESULT OUT OF RANGE REFERENCE UNITS LAB FT4 0.9-1.7 ng/dL Free T4 1.0 Performed By: #### HBA1C, CMP, LIPB, FSH, LH, FT4, TSH #### [facility] [address] [place], [place] [address] TSH Collected: 07/31/2018 Status: F Source: [place] 8:25 AM [facility] REPOSITORY TYPE CODE TESTS RESULT OUT OF RANGE REFERENCE UNITS LAB TSH 0.400-5.500 uU/mL TSH 1.550 Result Comment: If the patient is , TSH reference range varies by gestational period: First Trimester 0.100-2.500 uU/mL Second Trimester 0.200-3.000 uU/mL Third Trimester 0.300-3.000 uU/mL References: 1. Nagel L, Isabella M, Hiram EK, et al. Management of Thyroid Dysfunction during and : An Endocrine Society Clinical Practice Guideline. J Clin Endocrinol Metab, 2012:97:9168-9108. 2. [place] COFFEY. Overview of thyroid disease in . UpToDate. 2016. Accessed on April 12, 2016. Performed By: #### HBA1C, CMP, LIPB, FSH, LH, FT4, TSH #### [facility] [address] [place] [address] PROGRESS Observed: 07/30/2018 Status: COMPLETED Source: [place] 4:09 PM [facility] REPOSITORY HNO ID: [id number] Author: Hussain Ackerman Service: (none) Author Type: Physician Type: Progress Notes Filed: 07/30/2018 10:22 PM Note Text: Chief Complaint Patient presents with: Establish Care: physical HPI Korin Suarez is a 48 year old female who presents here today for establishment of care/WAE. Patient with Hx of dyslipidemia, xanthomas, GERD, obesity as well as those reviewed and addressed below. Needs new PCP. Past medical history, appointments, medications, allergies reviewed. 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 Previous Surgical History PAST SURGICAL HISTORY Procedure Laterality Date - SECTION HX - COLONOSCOPY 2010 Five Polyps benign - COLONOSCOPY 03/2017 - ORTHOPEDICS SURGERY HX Two knee surgeries on right knee - meniscus surgery Family History FAMILY HISTORY Problem Relation Age of Onset - Allergies Mother - Hypertension Father - Coronary Artery Disease Father 5 vessel CABG in 50's - Alzheimer's Disease No Family History - Breast Cancer No Family History - Ovarian cancer No Family History - Uterine Cancer No Family History - Colon Cancer No Family History - Prostate Cancer No Family History - Diabetes No Family History - Kidney Disease No Family History - Seizures No Family History - Stroke No Family History - Thyroid No Family History Patient Allergies ALLERGIES Allergen Reactions - Vicodin [Hydrocodon* GI Upset Current Medications Current Outpatient Prescriptions on File Prior to Visit: MULTIVITAMIN ORAL Take by mouth twice daily. No current facility-administered medications on file prior to visit. 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 Has night sweats and hot flashes. HEENT: Negative for significant change in vision, significant vision problems, significant ear problems or hearing loss, nasal discharge, or nose bleeds, sore throat, difficulty swallowing, mouth lesions, hoarseness NECK: Negative for goiter, pain and significant neck swelling. Has a lump on the left posterior side that has bene stable in size. Is painful at times. RESPIRATORY: Negative for cough, hemoptysis, wheezing, COPD,. Will have shortness of breath on cooler days or laughing CARDIOVASCULAR: Negative for chest pain, hypertension, CHF or palpitations. Patient's gets left sided chest pain off and on. Not exercise related. Seem to be stress related. Has not has a stress test since 2007. Not sure if gets pain into left arm. GI: No nausea, vomiting, or diarrhea and No heartburn or reflux symptoms as long as she takes her omeprazole : No history of dysuria, frequency or blood. MUSCULOSKELETAL: Negative for joint pain or swelling, back pain. With stress will get a muscle spasm in the left upper back under the scapula. SKIN: has some plaque like lesions in several areas. PSYCH: Negative for sleep disturbance, mood disorder. Has a lot of stress with work. HEMATOLOGY/LYMPHOLOGY: Negative for prolonged bleeding, bruising easily or swollen nodes ENDOCRINE: Negative for polyuria, polydipsia and goiter. Has heat and cold intolerance. NEURO: No history of syncope, paralysis, seizures or tremors. Has migraines for a few days in a row 2-3 times a month. EXAM: BP 122/94 Pulse 78 Resp 16 Ht 157.5 cm (5' 2) Wt 92.5 kg (204 lb) BMI 37.31 kg/m? BP 146/96 Pulse 78 Resp 16 Ht 157.5 cm (5' 2) Wt 92.5 kg (204 lb) BMI 37.31 kg/m? General Appearance: Well appearing, alert, in no acute distress, well-hydrated, well nourished., Obese and has a mild buffalo hump.. Skin: Skin color, texture, turgor normal, no suspicious rashes or lesions, has a lipoma in the left posterior neck, A sebaceous cyst at edge of left eye. Has xanthomas on inner upper eye lids. . Head: Normocephalic, no masses, lesions, tenderness or abnormalities. Eyes: Anicteric sclera. Pupils are equally round and reactive to light. Extraocular movements are intact. . Ears: External ears normal, canals clear. Nose/Sinuses: Nares normal, septum midline, mucosa normal, no drainage or sinus tenderness. Oropharynx: Lips, mucosa, and tongue normal, teeth and gums normal, oropharynx normal. Neck: Supple, no adenopathy; thyroid symmetric, normal size, no bruits. Lungs: Lungs clear to auscultation. No wheezing, rhonchi, rales. Heart: RRR without murmur, gallop, or rubs. No ectopy. Abdomen: Normal abdominal exam, Abdomen soft, non-tender. Bowel sounds normal. No masses, organomegaly. Extremities: No deformities, edema, skin discoloration. Musculoskeletal: Muscular strength intact, No joint swelling, deformity, or tenderness. Peripheral Pulses: Normal. Neurologic: Gait normal. Reflexes normal and symmetric. Sensation to light touch and crainal nerves 2-12 intact.. Health Maintenance List MAMMOGRAM due on 2010 PAP EVERY 3 YEARS due on 08/21/2019 DIABETES SCREEN due on 03/14/2020 LIPID SCREEN due on 03/14/2022 DTAP,TDAP,TD(2 - Td) due on 03/04/2027 HIV SCREEN Completed Data reviewed A/P ASSESSMENT/PLAN: 1. Well adult exam - ICD9: V70.0, ICD10: Z00.00 (primary diagnosis) - Encouraged monthly Breast Self Exam - Follow up for annual exam in one year. - HGB A1C 2. Dyslipidemia - ICD9: 272.4, ICD10: E78.5 - to be determined upon return of lab results - Encouraged following a low fat, low cholesterol diet. - Discussed the benefits of regular aerobic exercise and weight loss. - Encouraged following a low carbohydrate, healthy oil intake diet. - Continue current therapy. - LIPID PANEL BASIC - COMP METABOLIC PANEL - URINALYSIS WITH MICROSCOPIC 3. Gastroesophageal reflux disease with esophagitis - ICD9: 530.11, ICD10: K21.0 - Continue treatment with Prilosec 20 mg BID 4. Migraine without aura and without status migrainosus, not intractable - ICD9: 346.10, ICD10: G43.009 Will try - SUMATRIPTAN 100 MG TABLET 5. Xanthoma of eyelid - ICD9: 272.2, 374.51, ICD10: E75.5 - CONSULT TO PLASTIC SURGERY: Dr. [place] 6. [facility] - ICD9: 278.1, ICD10: E65 Check - FREE JEFF, UR LCMSMS 7. History of colonic polyps - ICD9: V12.72, ICD10: Z86.010 - Last scope was 2016 8. History of gestational diabetes - ICD9: V12.21, ICD10: Z86.32 Check - HGB A1C 9. Encounter for screening for diabetes mellitus - ICD9: V77.1, ICD10: Z13.1 Check - HGB A1C 10. Heat intolerance - ICD9: 780.99, ICD10: R68.89 Check - TSH BLD - T4 FREE/FREE THYROX 11. Cold intolerance - ICD9: 780.99, ICD10: R68.89 Check - TSH BLD - T4 FREE/FREE THYROX 12. Weight gain - ICD9: 783.1, ICD10: R63.5 Check - TSH BLD - T4 FREE/FREE THYROX - FREE JEFF, UR LCMSMS 13. Hot flashes - ICD9: 782.62, ICD10: R23.2 check - FSH BLD - LUTEINIZING HORMONE 14. Obesity, Class II, BMI 35-39.9 - ICD9: 278.00, ICD10: E66.9 - Patient to work on diet and exercise 15. 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 Muscle spasm - ICD9: 728.85, ICD10: M62.838 - Cont prn flexeril 17. Essential hypertension - ICD9: 401.9, ICD10: I10 - newly diagnosed - Begin lisinopril (Zestril/Prinivil) 10 mg a day. - Recommended regular aerobic exercise. - Recommend home blood pressure monitoring, to bring results in on next visit - Goal of BP <140/80 18. Sebaceous cyst - ICD9: 706.2, ICD10: L72.3 - CONSULT TO PLASTIC SURGERY 19. Lipoma of neck - ICD9: 214.1, ICD10: D17.0 - CONSULT TO PLASTIC SURGERY 20. Irritable bowel syndrome with both constipation and diarrhea - ICD9: 564.1, ICD10: K58.2 - Has been on bentyl in the past and worked well. - DICYCLOMINE 10 MG CAPSULE twice a day prn Signed Prescriptions Disp Refills omeprazole (PRILOSEC) 20 mg capsule 180 capsule 1 Sig: Take 1 capsule by mouth twice daily before meals. REYNA: No omega-3 fatty acids 1,000 mg cap Sig: Take 1 capsule by mouth once daily. cyclobenzaprine (FLEXERIL) 10 mg tablet 30 tablet 0 Sig: Take 1 tablet by mouth three times daily as needed for Muscle Spasm. lisinopril (ZESTRIL, PRINIVIL) 10 mg tablet 30 tablet 5 Sig: Take 1 tablet by mouth once daily. SUMAtriptan (IMITREX) 100 mg tablet 9 tablet 5 Sig: Take one with onset of migraine. May repeat in 2 hrs. Max is 2 tabs in 24 hrs. dicyclomine (BENTYL) 10 mg capsule 30 capsule 0 Sig: Take 1 capsule by mouth twice daily as needed. F/u 4 weeks for HTN check and migraine med check Hussain Ackerman MD CNOV Observed: 07/30/2018 Status: COMPLETED Source: [place] 3:00 PM [facility] REPOSITORY [facility] KORIN SUAREZ ([id number]) 1970 F Date Time Provider Department 07/30/18 3:00 PM HUSSAIN ACKERMAN During your visit today, we recorded the following information about you: Pulse Respiration Blood pressure Weight 78/minute 16/minute 146/96 92.5 kg Height 1.575 m Hussain Ackerman MD 07/30/2018 10:22 PM Signed Chief Complaint Patient presents with: Establish Care: physical HPI Korin Suarez is a 48 year old female who presents here today for establishment of care/WAE. Patient with Hx of dyslipidemia, xanthomas, GERD, obesity as well as those reviewed and addressed below. Needs new PCP. Past medical history, appointments, medications, allergies reviewed. 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 Previous Surgical History PAST SURGICAL HISTORY Procedure Laterality Date - SECTION HX - COLONOSCOPY 2010 Five Polyps benign - COLONOSCOPY 03/2017 - ORTHOPEDICS SURGERY HX Two knee surgeries on right knee - meniscus surgery Family History FAMILY HISTORY Problem Relation Age of Onset - Allergies Mother - Hypertension Father - Coronary Artery Disease Father 5 vessel CABG in 50's - Alzheimer's Disease No Family History - Breast Cancer No Family History - Ovarian cancer No Family History - Uterine Cancer No Family History - Colon Cancer No Family History - Prostate Cancer No Family History - Diabetes No Family History - Kidney Disease No Family History - Seizures No Family History - Stroke No Family History - Thyroid No Family History Patient Allergies ALLERGIES Allergen Reactions - Vicodin [Hydrocodon* GI Upset Current Medications Current Outpatient Prescriptions on File Prior to Visit: MULTIVITAMIN ORAL Take by mouth twice daily. No current facility-administered medications on file prior to visit. 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 Has night sweats and hot flashes. HEENT: Negative for significant change in vision, significant vision problems, significant ear problems or hearing loss, nasal discharge, or nose bleeds, sore throat, difficulty swallowing, mouth lesions, hoarseness NECK: Negative for goiter, pain and significant neck swelling. Has a lump on the left posterior side that has bene stable in size. Is painful at times. RESPIRATORY: Negative for cough, hemoptysis, wheezing, COPD,. Will have shortness of breath on cooler days or laughing CARDIOVASCULAR: Negative for chest pain, hypertension, CHF or palpitations. Patient's gets left sided chest pain off and on. Not exercise related. Seem to be stress related. Has not has a stress test since 2007. Not sure if gets pain into left arm. GI: No nausea, vomiting, or diarrhea and No heartburn or reflux symptoms as long as she takes her omeprazole : No history of dysuria, frequency or blood. MUSCULOSKELETAL: Negative for joint pain or swelling, back pain. With stress will get a muscle spasm in the left upper back under the scapula. SKIN: has some plaque like lesions in several areas. PSYCH: Negative for sleep disturbance, mood disorder. Has a lot of stress with work. HEMATOLOGY/LYMPHOLOGY: Negative for prolonged bleeding, bruising easily or swollen nodes ENDOCRINE: Negative for polyuria, polydipsia and goiter. Has heat and cold intolerance. NEURO: No history of syncope, paralysis, seizures or tremors. Has migraines for a few days in a row 2-3 times a month. EXAM: BP 122/94 Pulse 78 Resp 16 Ht 157.5 cm (5' 2) Wt 92.5 kg (204 lb) BMI 37.31 kg/m? BP 146/96 Pulse 78 Resp 16 Ht 157.5 cm (5' 2) Wt 92.5 kg (204 lb) BMI 37.31 kg/m? General Appearance: Well appearing, alert, in no acute distress, well-hydrated, well nourished., Obese and has a mild buffalo hump.. Skin: Skin color, texture, turgor normal, no suspicious rashes or lesions, has a lipoma in the left posterior neck, A sebaceous cyst at edge of left eye. Has xanthomas on inner upper eye lids. . Head: Normocephalic, no masses, lesions, tenderness or abnormalities. Eyes: Anicteric sclera. Pupils are equally round and reactive to light. Extraocular movements are intact. . Ears: External ears normal, canals clear. Nose/Sinuses: Nares normal, septum midline, mucosa normal, no drainage or sinus tenderness. Oropharynx: Lips, mucosa, and tongue normal, teeth and gums normal, oropharynx normal. Neck: Supple, no adenopathy; thyroid symmetric, normal size, no bruits. Lungs: Lungs clear to auscultation. No wheezing, rhonchi, rales. Heart: RRR without murmur, gallop, or rubs. No ectopy. Abdomen: Normal abdominal exam, Abdomen soft, non-tender. Bowel sounds normal. No masses, organomegaly. Extremities: No deformities, edema, skin discoloration. Musculoskeletal: Muscular strength intact, No joint swelling, deformity, or tenderness. Peripheral Pulses: Normal. Neurologic: Gait normal. Reflexes normal and symmetric. Sensation to light touch and crainal nerves 2-12 intact.. Health Maintenance List MAMMOGRAM due on 2010 PAP EVERY 3 YEARS due on 08/21/2019 DIABETES SCREEN due on 03/14/2020 LIPID SCREEN due on 03/14/2022 DTAP,TDAP,TD(2 - Td) due on 03/04/2027 HIV SCREEN Completed Data reviewed A/P ASSESSMENT/PLAN: 1. Well adult exam - ICD9: V70.0, ICD10: Z00.00 (primary diagnosis) - Encouraged monthly Breast Self Exam - Follow up for annual exam in one year. - HGB A1C 2. Dyslipidemia - ICD9: 272.4, ICD10: E78.5 - to be determined upon return of lab results - Encouraged following a low fat, low cholesterol diet. - Discussed the benefits of regular aerobic exercise and weight loss. - Encouraged following a low carbohydrate, healthy oil intake diet. - Continue current therapy. - LIPID PANEL BASIC - COMP METABOLIC PANEL - URINALYSIS WITH MICROSCOPIC 3. Gastroesophageal reflux disease with esophagitis - ICD9: 530.11, ICD10: K21.0 - Continue treatment with Prilosec 20 mg BID 4. Migraine without aura and without status migrainosus, not intractable - ICD9: 346.10, ICD10: G43.009 Will try - SUMATRIPTAN 100 MG TABLET 5. Xanthoma of eyelid - ICD9: 272.2, 374.51, ICD10: E75.5 - CONSULT TO PLASTIC SURGERY: Dr. [place] 6. [facility] - ICD9: 278.1, ICD10: E65 Check - FREE JEFF, UR LCMSMS 7. History of colonic polyps - ICD9: V12.72, ICD10: Z86.010 - Last scope was 2016 8. History of gestational diabetes - ICD9: V12.21, ICD10: Z86.32 Check - HGB A1C 9. Encounter for screening for diabetes mellitus - ICD9: V77.1, ICD10: Z13.1 Check - HGB A1C 10. Heat intolerance - ICD9: 780.99, ICD10: R68.89 Check - TSH BLD - T4 FREE/FREE THYROX 11. Cold intolerance - ICD9: 780.99, ICD10: R68.89 Check - TSH BLD - T4 FREE/FREE THYROX 12. Weight gain - ICD9: 783.1, ICD10: R63.5 Check - TSH BLD - T4 FREE/FREE THYROX - FREE JEFF, UR LCMSMS 13. Hot flashes - ICD9: 782.62, ICD10: R23.2 check - FSH BLD - LUTEINIZING HORMONE 14. Obesity, Class II, BMI 35-39.9 - ICD9: 278.00, ICD10: E66.9 - Patient to work on diet and exercise 15. 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 Muscle spasm - ICD9: 728.85, ICD10: M62.838 - Cont prn flexeril 17. Essential hypertension - ICD9: 401.9, ICD10: I10 - newly diagnosed - Begin lisinopril (Zestril/Prinivil) 10 mg a day. - Recommended regular aerobic exercise. - Recommend home blood pressure monitoring, to bring results in on next visit - Goal of BP <140/80 18. Sebaceous cyst - ICD9: 706.2, ICD10: L72.3 - CONSULT TO PLASTIC SURGERY 19. Lipoma of neck - ICD9: 214.1, ICD10: D17.0 - CONSULT TO PLASTIC SURGERY 20. Irritable bowel syndrome with both constipation and diarrhea - ICD9: 564.1, ICD10: K58.2 - Has been on bentyl in the past and worked well. - DICYCLOMINE 10 MG CAPSULE twice a day prn Signed Prescriptions Disp Refills omeprazole (PRILOSEC) 20 mg capsule 180 capsule 1 Sig: Take 1 capsule by mouth twice daily before meals. REYNA: No omega-3 fatty acids 1,000 mg cap Sig: Take 1 capsule by mouth once daily. cyclobenzaprine (FLEXERIL) 10 mg tablet 30 tablet 0 Sig: Take 1 tablet by mouth three times daily as needed for Muscle Spasm. lisinopril (ZESTRIL, PRINIVIL) 10 mg tablet 30 tablet 5 Sig: Take 1 tablet by mouth once daily. SUMAtriptan (IMITREX) 100 mg tablet 9 tablet 5 Sig: Take one with onset of migraine. May repeat in 2 hrs. Max is 2 tabs in 24 hrs. dicyclomine (BENTYL) 10 mg capsule 30 capsule 0 Sig: Take 1 capsule by mouth twice daily as needed. F/u 4 weeks for HTN check and migraine med check Hussain Ackerman MD Referring Provider: SELF [200] Allergies As of Date: 07/30/2018 Noted Allergy Reaction VICODIN (HYDROCODONE-ACETAMINOPHE*03/02/2011 8 - GI Upset Date Reviewed: 07/30/2018 Reviewed by: Hussain Ackerman - Fully Assessed Reason for Visit: Establish Care [42] Cmt: physical Reason For Visit History Recorded Primary Visit Diagnosis:Well adult exam [Z00.00] Comment:last done: 07/30/2018 Other Visit Diagnoses:Dyslipidemia [E78.5] Gastroesophageal reflux disease with esophagitis [K21.0] Migraine without aura and without status migrainosus, not intractable [G43.009] 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] Maury hump [E65] History of colonic polyps [Z86.010] History of gestational diabetes [Z86.32] Encounter for screening for diabetes mellitus [Z13.1] Heat intolerance [R68.89] Cold intolerance [R68.89] Weight gain [R63.5] Hot flashes [R23.2] Obesity, Class II, BMI 35-39.9 [E66.9] Encounter for gynecological examination [Z01.419] Muscle spasm [M62.838] Comment:under left scapula with stress, takes flexerile as needed but infrequent Essential hypertension [I10] Sebaceous cyst [L72.3] Comment:lateral to left eye Lipoma of neck [D17.0] Comment:left posterior neck Irritable bowel syndrome with both constipation and diarrhea [K58.2] Order(s):LIPID PANEL BASIC [SQLIPB] Order #: [id number] FUTURE COMP METABOLIC PANEL [SQCMP] Order #: [id number] FUTURE TSH BLD [SQTSH] Order #: [id number] FUTURE omeprazole (PRILOSEC) 20 mg capsuleTake 1 capsule by mouth twice daily before meals.Disp: 180 capsuleRfl: 1 CONSULT TO UTILITY WORKER DRIVER [0298] Order #: [id number]: 1 omega-3 fatty acids 1,000 mg capTake 1 capsule by mouth once daily.Disp: Rfl: URINALYSIS WITH MICROSCOPIC [SQUAWMIC] Order #: [id number] FUTURE HGB A1C [XCMSB5C] Order #: [id number] FUTURE T4 FREE/FREE THYROX [SQFT4] Order #: [id number] FUTURE FSH BLD [SQFSH] Order #: [id number] FUTURE LUTEINIZING HORMONE [SQLH] Order #: [id number] FUTURE FREE JEFF, UR LCMSMS [SQUFRCRT] Order #: [id number] FUTURE cyclobenzaprine (FLEXERIL) 10 mg tabletTake 1 tablet by mouth three times daily as needed for Muscle Spasm.Disp: 30 tabletRfl: 0 lisinopril (ZESTRIL, PRINIVIL) 10 mg tabletTake 1 tablet by mouth once daily.Disp: 30 tabletRfl: 5 CONSULT TO PLASTIC SURGERY [3257] Order #: [id number]: 1 SUMAtriptan (IMITREX) 100 mg tabletTake one with onset of migraine. May repeat in 2 hrs. Max is 2 tabs in 24 hrs.Disp: 9 tabletRfl: 5 dicyclomine (BENTYL) 10 mg capsuleTake 1 capsule by mouth twice daily as needed.Disp: 30 capsuleRfl: 0 Prescriptions as of 07/30/2018 Sig: MULTIVITAMIN ORAL Take by mouth twice daily. 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 History of gestational diabetes [Z86.32] INVALID FOR* Priority: B Dyslipidemia [E78.5] INVALID FOR* Priority: A Migraine without aura and without status migrai*INVALID FOR* Priority: A Well adult exam [Z00.00] INVALID FOR* Priority: E More... Obesity, Class II, BMI 35-39.9 [E66.9] INVALID FOR* Priority: B Muscle spasm [M62.838] INVALID FOR* Priority: M More... Essential hypertension [I10] INVALID FOR* Priority: A Sebaceous cyst [L72.3] INVALID FOR* Priority: D More... Lipoma of neck [D17.0] INVALID FOR* Priority: D More... Irritable bowel syndrome with both constipation*INVALID FOR* Priority: C Prescriptions ordered this encounter Disp Refills Start End OMEPRAZOLE 20 MG CAPSULE,DELAYED REL* 180 * 1 07/30/2018 09/28/2018 Route: ORAL Sig: Take 1 capsule by mouth twice daily before meals. OMEGA-3 FATTY ACIDS 1,000 MG CAPSULE 07/30/2018 Class: Med Update Route: ORAL Sig: Take 1 capsule by mouth once daily. CYCLOBENZAPRINE 10 MG TABLET 30 t* 0 07/30/2018 Class: Med Update Route: ORAL Sig: Take 1 tablet by mouth three times daily as needed for Muscle Spasm. LISINOPRIL 10 MG TABLET 30 t* 5 07/30/2018 Route: ORAL Sig: Take 1 tablet by mouth once daily. SUMATRIPTAN 100 MG TABLET 9 ta* 5 07/30/2018 Sig: Take one with onset of migraine. May repeat in 2 hrs. Max is 2 tabs in 24 hrs. DICYCLOMINE 10 MG CAPSULE 30 c* 0 07/30/2018 Route: ORAL Sig: Take 1 capsule by mouth twice daily as needed. Medications Discontinued During This Encounter aspirin, enteric coated (ASPIR-LOW) * 30 t* 0 04/23/2016 07/30/2018 Class: Print RX Route: ORAL Sig: Take 1 tablet by mouth once daily. Disc: Discontinued by Patient omeprazole (PRILOSEC) 20 mg capsule 120 * 2 04/11/2017 07/30/2018 Route: ORAL Sig: Take 1 capsule by mouth twice daily before meals for 60 days. Disc: Reason for discontinue is not on file. Disposition: Return in about 4 weeks (around 08/27/2018) for HTN check and f/u migraine med with Wanda. Follow-up and Disposition History Recorded Encounter Status:Closed by HUSSAIN ACKERMAN on 07/30/18 ALLERGIES ALLERGIES DATE TYPE / CODE NAME / CODE REACTION SEVERITY SOURCE 11/13/2018 Drug hydrocodone/ Nausea Unknown [facility] Allergy/4160 [id number](R Hospital 00702(SNOMED XNORM) Repository CT) 11/13/2018 Drug acetaminophe Nausea Unknown [facility] Allergy/4160 n/[id number] Hospital 05572(SNOMED (RXNORM) Repository CT) 03/02/2011 DRUG/0032226 HYDROCODONE- GI UPSET Low [facility] 03(SNOMED ACETAMINOPHE [facility] CT) N Repository 03/02/2011 DRUG/[id number] HYDROCODONE- UNKNOWN [facility] 03(SNOMED ACETAMINOPHE [facility] CT) N Repository ENCOUNTERS ENCOUNTERS ADMIT/DISCHARGE ACCOUNT ADMITTING ENCOUNTER LOCATION SOURCE NUMBER CLASS 11/18/2018/11/19/19 [id number] Ambulatory [address] Repository 11/13/2018/11/13/19 [id number] [place] [facility] ing:ED Repository 11/13/2018/11/13/19 [id number] Ambulatory [place] [facility] [place] Repository 11/13/2018/11/13/19 [id number] Ambulatory [place] [facility] [place] Repository 11/10/2018/11/16/19 [id number] Ambulatory [place] [facility] [place] Repository 11/06/2018/11/06/19 [id number] Ambulatory [place] [facility] [place] Repository 10/29/2018/10/29/19 [id number] Ambulatory [place] [facility] [place] Repository 10/12/2018/10/13/20 [id number] Ambulatory [place] [facility] [place] Repository 09/04/2018/09/07/20 [id number] Ambulatory [address] [place] Repository 08/28/2018/08/31/20 [id number] Ambulatory [address] Repository 07/31/2018/07/31/20 [id number] Ambulatory [address] [place] Repository 07/30/2018/07/31/20 [id number] Ambulatory [address] Repository PAYERS PAYERS ENCOUNTER GUARANTOR PAYER SUBSCRIBER SOURCE 11/13/2018 KORIN SUAREZ125 Primary KORIN BARONE Insurance:[facility] ANGLEDOB: [facility] [id number] [id number] [id number]: ([phone]) Number: Repository [phone] ) [id number] Date:[id number], [place] [address]KC: 11/13/2018 Secondary NOT GIVENUNK Odell Insurance:SELF PAY [facility] Number: Effective Repository Date:2018-11-13
== END 2018-11-13 19:57 | disposition home or self-care (01) ==
LOC: ED 19:06
PROVIDERS: Emergency Provider Emergency Medicine; Family Provider Family Medicine; PCP Family Medicine
DX: R10.31 Right lower quadrant pain (principal); D25.9 Leiomyoma of uterus, unspecified; M54.9 Dorsalgia, unspecified; I10 Essential (primary) hypertension
CPT/HCPCS: 74177; 80053; 81001; 85025; 99283; J7030; Q9967; J2405